=== PATIENT | female | born 1965 | race Caucasian/White ===

== ENCOUNTER → 2017-04-12 13:02 | Outpatient (CLI) | payer OTHER, SELFPAY ==
--- NOTE | 2017-04-12 13:05 | RAD_ITS ---
STUDY: X-RAY - LEFT ANKLE REASON FOR EXAM: Heel pain for several months, no specific injury. TECHNIQUE: 3 view(s) of the ankle. COMPARISON: Radiographs of the left foot 08/03/2015. FINDINGS: Normal visualized distal tibia and fibula. Normal medial and lateral malleoli. Normal tibiotalar articulation and ankle mortise. Normal visualized talus. There is a small plantar calcaneal enthesophyte. The visualized subtalar, talonavicular, calcaneocuboid and tarsal articulations are normal. The soft tissue structures are unremarkable. RAD/Ankle min 3 Views IMPRESSION: Small plantar calcaneal enthesophyte. Otherwise, unremarkable x-ray examination of the left ankle. Electronically Signed: Colin Aviles MD at 16:18 EST Tel , Service support ,
== END ==
PROVIDERS: Family Provider Family Medicine; PCP Family Medicine; Visit Provider Nurse Practitioner Family
DX: M25.572 Pain in left ankle and joints of left foot (principal)
CPT/HCPCS: 73610

== ENCOUNTER → 2017-05-17 10:48 | Outpatient (CLI) | payer OTHER, SELFPAY ==
--- NOTE | 2017-05-17 10:56 | MRI_ITS ---
STUDY: MRI LEFT ANKLE WITHOUT CONTRAST REASON FOR EXAM: Female, 52 years old. medial arch pain into medial ankle TECHNIQUE: Standardized fat and water weighted pulse sequences were obtained in all 3 orthogonal planes. COMPARISON: April 12, 2017 x-ray FINDINGS: There is mild diffuse subcutaneous edema. There is mild tenosynovitis of the posterior tibialis tendon sheath with an intrinsic normal tendon. Normal flexor digitorum longus tendon. Normal flexor hallucis longus tendon. Normal peroneus longus and brevis tendons. Normal tibialis anterior tendon. Normal extensor hallucis longus tendon. Normal extensor digitorum longus tendons. Normal Achilles tendon and teno-osseous insertion. Normal plantar fascia. There is a plantar calcaneal spur, but without cancellous marrow edema. Normal intrinsic muscles of the rearfoot. Normal distal tibiofibular syndesmotic ligamentous complex. There is scarring with thickening of the anterior talofibular ligament consistent with a remote sprain. Normal subtalar ligaments and sinus tarsi. Normal deltoid ligamentous complexes. Normal plantar calcaneonavicular (spring) ligament. Normal tibiotalar articulation. Normal talar dome. Normal subtalar articulations. Normal talonavicular articulation. Normal calcaneocuboid articulation. Normal navicular-cuneiform articulations. MRI/Lower Ext Joint Only (Routine) IMPRESSION: There is mild posterior tibial tenosynovitis. There is a plantar calcaneal spur. There is old injury of the ATFL. Electronically Signed: Kenisha Coombs MD at 13:04 EDT , Service support ,
== END ==
PROVIDERS: Family Provider Family Medicine; PCP Family Medicine; Visit Provider Podiatrist
DX: M76.822 Posterior tibial tendinitis, left leg (principal); S86.112A Strain of other muscle(s) and tendon(s) of posterior muscle group at lower leg level, left leg, initial encounter; M25.572 Pain in left ankle and joints of left foot
CPT/HCPCS: 73721

== ENCOUNTER → 2017-06-21 09:26 | Outpatient (CLI) | payer OTHER, SELFPAY ==
[2017-06-21 12:16] LABS: Vitamin B12 548 pg/mL (211-911); Vitamin D,25 Hydroxy 30.3 ng/mL (29.95-100.01)
[2017-06-21 13:11] LABS: ALB/GLOB Ratio 1.1 RATIO (0.9-2.4); AST(SGOT) 37 U/L (15-37); Alanine Aminotransfer ALT/SGPT 76 U/L (13-56); Albumin, Serum 3.8 g/dL (3.2-5.0); Alkaline Phosphatase 91 U/L (45-117); Anion Gap 8 (5-15); BUN 18 mg/dL (7-18); BUN/Creat Ratio 21.9 RATIO (10-20); Calcium,Total 8.5 mg/dL (8.5-10.1); Chloride 105 mmol/L (98-107); Cholesterol 176 mg/dL (200); Creatinine, Serum 0.82 mg/dL (0.55-1.02); EST Glomerular Filtration Rate 77 mL/min (>60); Est Glom Filt Rate - Afr Amer 93 mL/min (>60); Globulin 3.6 g/dL (2.2-4.2); Glucose 88 mg/dL (74-106); High Density Lipoprotein 41 mg/dL; Potassium 3.9 mmol/L (3.5-5.1); Protein, Total 7.4 g/dL (6.4-8.2); Sodium Level 140 mmol/L (136-145); Triglycerides 289 mg/dL; Very Low Density Lipoprotein 58 mg/dL (5-40)
== END ==
PROVIDERS: Family Provider Family Medicine; PCP Family Medicine; Visit Provider Family Medicine
DX: G62.9 Polyneuropathy, unspecified (principal); I10 Essential (primary) hypertension; E72.12 Methylenetetrahydrofolate reductase deficiency
CPT/HCPCS: 36415; 80053; 80061; 82306; 82607; 82746

== ENCOUNTER → 2017-11-10 15:43 | Outpatient (CLI) | payer OTHER, SELFPAY ==
--- NOTE | 2017-11-10 15:50 | BI_ITS ---
MAMMOGRAPHY - BILATERAL SCREENING REASON FOR EXAM: Female, 52 years old. Routine annual screening examination. PERTINENT HISTORY: Grandmother with breast cancer. Aunts with breast cancer. TECHNIQUE: Digital bilateral breast judith (3D mammographic acquisition) in the CC and MLO projections. 2-D mediolateral oblique (MLO) and craniocaudad (CC) views of both breasts were obtained. CAD: Full Field Digital Mammography with Computer Added Detection was performed. COMPARISON: Comparison is made with prior study dated October 20, 2016 and October 09, 2015. FINDINGS: Breast Composition: There are scattered areas of fibroglandular density. There are no dominant masses or suspicious calcifications. There is a 5.9 mm x 5.9 mm well-defined nodule in the upper lateral portion of the left breast. This was not well seen on prior examination. Correlation with ultrasound is recommended. No other significant abnormalities are identified. BI/SCREENING MAMM (CAD), BILAT IMPRESSION: There is a 5.9 mm x 5.9 mm well-defined nodule in the upper lateral portion of the left breast as described. Correlation with ultrasound is recommended. ASSESSMENT CATEGORY: BIRADS Category 0: Incomplete. Need additional imaging evaluation. A letter regarding these results will be sent to the patient by the facility within 30 days. Approximately 10% of breast cancers are not detected by mammography. A normal mammogram should not delay biopsy of a clinically suspicious abnormality. [id number] Electronically Signed: Feliciano Linder MD at 8:20 EDT Tel [phone], Service support ,
== END ==
PROVIDERS: Family Provider Family Medicine; PCP Family Medicine; Visit Provider Obstetrics & Gynecology
DX: Z12.31 Encounter for screening mammogram for malignant neoplasm of breast (principal)
CPT/HCPCS: 77063; 77067

== ENCOUNTER → 2017-11-15 09:31 | Outpatient (CLI) | payer OTHER, SELFPAY ==
--- NOTE | 2017-11-15 09:33 | US_ITS ---
STUDY: ULTRASOUND BREAST - LEFT REASON FOR EXAM: Female, 52 years old. Abnormal screening mammogram. TECHNIQUE: Axial and longitudinal images of the LEFT breast were performed with a high resolution ultrasound transducer. COMPARISON: Comparison is made with prior mammogram dated November 10, 2017. FINDINGS: LEFT Breast: There is a 5 mm x 5 mm x 3 mm cyst at the 3:00 position the breast at 2 cm from the nipple. This corresponds to the mammographic findings. There is also evidence of retroareolar ductal dilatation. US/Breast Limited Unilateral IMPRESSION: 5 mm x 5 mm x 3 mm cyst at the 3:00 position of the breast at 2 cm from the nipple. Mild retroareolar ductal dilatation. ASSESSMENT CATEGORY: BIRADS Category 2: Benign. A letter regarding these results will be sent to the patient by the facility within 30 days. Electronically Signed: Feliciano Linder MD at 11:09 EDT Tel [phone], Service support ,
== END ==
PROVIDERS: Family Provider Family Medicine; PCP Family Medicine; Visit Provider Obstetrics & Gynecology
DX: R92.8 Other abnormal and inconclusive findings on diagnostic imaging of breast (principal)
CPT/HCPCS: 76642

== ENCOUNTER → 2018-02-28 08:58 | Outpatient (CLI) | payer OTHER, SELFPAY ==
--- NOTE | 2018-02-28 09:03 | BI_ITS ---
MAMMOGRAPHY - UNILATERAL DIAGNOSTIC: RIGHT BREAST REASON FOR EXAM: Female, 52 years old. Two-week history of right nipple discharge. PERTINENT HISTORY: Grandmother with breast cancer. TECHNIQUE: Digital unilateral breast judith (3D mammographic acquisition) in the CC and MLO projections. 2-D mediolateral oblique (MLO) and craniocaudad (CC) views of both breasts were obtained. CAD: Full Field Digital Mammography with Computer Added Detection was performed. COMPARISON: Comparison is made with prior study dated November 10, 2017 and October 20, 2016. FINDINGS: Breast Composition: There are scattered areas of fibroglandular density. There are no dominant masses or suspicious calcifications. No other significant abnormalities are identified. There has been no significant change since the prior study. BI/DIAG MAMM W/CAD, UNILAT IMPRESSION: Stable unilateral diagnostic mammogram. With the patient's history of right nipple discharge, correlation with ultrasound is recommended. ASSESSMENT CATEGORY: BIRADS Category 0: Incomplete. Need additional imaging evaluation. A letter regarding these results will be sent to the patient by the facility within 30 days. Approximately 10% of breast cancers are not detected by mammography. A normal mammogram should not delay biopsy of a clinically suspicious abnormality. Electronically Signed: Feliciano Linder MD at 15:50 EST Tel [phone], Service support ,
--- NOTE | 2018-02-28 09:06 | US_ITS ---
STUDY: ULTRASOUND BREAST - RIGHT REASON FOR EXAM: Female, 52 years old. Nipple discharge in the right breast. TECHNIQUE: Axial and longitudinal images of the RIGHT breast were performed with a high resolution ultrasound transducer. COMPARISON: Comparison is made with prior mammogram done earlier today. FINDINGS: RIGHT Breast: The retroareolar region of the breast was examined by ultrasound. There is evidence of dilated subareolar ducts. There is also evidence of a 6 mm x 7 mm x 4 mm cyst at the 6:00 position of the breast just inferior to the areola. US/Breast Limited Unilateral IMPRESSION: Dilated subareolar ducts. 6 mm x 7 mm x 4 mm cyst in the inferior retroareolar region. ASSESSMENT CATEGORY: BIRADS Category 2: Benign. A letter regarding these results will be sent to the patient by the facility within 30 days. Electronically Signed: Feliciano Linder MD at 13:11 EST Tel [phone], Service support ,
== END ==
PROVIDERS: Family Provider Family Medicine; PCP Family Medicine; Referring Provider Obstetrics & Gynecology; Visit Provider Obstetrics & Gynecology
DX: N64.52 Nipple discharge (principal)
CPT/HCPCS: 76642; 77061; 77065; G0279

== ENCOUNTER → 2018-04-26 08:46 | Outpatient (CLI) | payer OTHER, SELFPAY ==
[2018-03-03 09:35] VITALS: BMI 38.4
[2018-04-26 10:30] LABS: Microalbumin,Random Urine 18.6 mg/L (NO RANGE EST.)
[2018-04-26 10:36] LABS: ALB/GLOB Ratio 1.2 RATIO (0.9-2.4); AST(SGOT) 34 U/L (15-37); Alanine Aminotransfer ALT/SGPT 63 U/L (13-56); Albumin, Serum 3.8 g/dL (3.2-5.0); Alkaline Phosphatase 88 U/L (45-117); Anion Gap 8 (5-15); BUN 16 mg/dL (7-18); BUN/Creat Ratio 17.5 RATIO (10-20); Calcium,Total 8.5 mg/dL (8.5-10.1); Chloride 104 mmol/L (98-107); Cholesterol 171 mg/dL (200); Creatinine, Serum 0.92 mg/dL (0.55-1.02); EST Glomerular Filtration Rate 68 mL/min (>60); Est Glom Filt Rate - Afr Amer 82 mL/min (>60); Globulin 3.3 g/dL (2.2-4.2); Glucose 81 mg/dL (74-106); High Density Lipoprotein 41 mg/dL; Potassium 4.1 mmol/L (3.5-5.1); Protein, Total 7.1 g/dL (6.4-8.2); Sodium Level 140 mmol/L (136-145); Triglycerides 227 mg/dL; Very Low Density Lipoprotein 45 mg/dL (5-40)
[2018-04-26 11:23] LABS: Vitamin D,25 Hydroxy 32.7 ng/mL (29.95-100.01)
== END ==
PROVIDERS: Family Provider Family Medicine; PCP Family Medicine; Referring Provider Family Medicine; Visit Provider Family Medicine
DX: Z13.21 Encounter for screening for nutritional disorder (principal); Z13.29 Encounter for screening for other suspected endocrine disorder; I10 Essential (primary) hypertension
CPT/HCPCS: 36415; 80053; 80061; 82043; 82306; 84443

== ENCOUNTER → 2018-05-08 08:08 | Outpatient (CLI) | payer OTHER, SELFPAY ==
[2018-03-03 09:35] VITALS: BMI 38.4
--- NOTE | 2018-05-08 08:10 | US_ITS ---
STUDY: ABDOMINAL ULTRASOUND - RIGHT UPPER QUADRANT REASON FOR VISIT: Female, 53 years old. Fatty liver. TECHNIQUE: Ultrasound evaluation of the right upper quadrant was performed with real-time and static jama-scale imaging. TECHNICAL QUALITY: Adequate. COMPARISON: None. FINDINGS: Liver: The liver measures 18.5 cm. There is increased echogenicity and coarsened echotexture consistent with fatty infiltration. The bile ducts are within normal limits. There is hepatic color flow. The direction of portal flow is hepatopetal. There is no demonstrated mass lesion. Gallbladder: Normal distended gallbladder. The gallbladder wall measures 3 mm. There is a negative sonographic Stock's sign. There is no pericholecystic fluid. Solitary gallstone in neck of the gallbladder measuring 7 mm. Small polyp versus adherent gallstone measuring 4 mm. Common Bile Duct (C.B.D.): The common bile duct measures 2 mm. Pancreas: Normal size of the head, body and tail of the pancreas. There is normal echogenicity of the pancreas. There is no demonstrated pancreatic mass or cyst. Right Kidney: Normal size of the right kidney. The right kidney measures 13.4 cm. Normal renal cortex. The right cortex measures 1.9 cm. Simple cyst inferior pole measuring 2.4 x 2.3 x 2.0 cm. There is no right hydronephrosis. US/Abdomen Limited IMPRESSION: Fatty liver. Minimal cholelithiasis. Small polyp versus adherent gallstone. Simple right renal cyst. Electronically Signed: Ervin Oliva MD at 7:50 EDT , Service support ,
== END ==
PROVIDERS: Family Provider Family Medicine; PCP Family Medicine; Visit Provider Family Medicine
DX: K76.0 Fatty (change of) liver, not elsewhere classified (principal)
CPT/HCPCS: 76705

== ENCOUNTER → 2018-05-10 14:46 | Outpatient (CLI) | payer OTHER, SELFPAY ==
[2018-03-03 09:35] VITALS: BMI 38.4
--- NOTE | 2018-05-10 14:49 | ECHOD_ITS ---
Reason For Study: DYSPNEA Procedure This was a 2D Doppler, Color Flow transthoracic echocardiogram. Exam performed in department. Left Ventricle Normal size and thickness. The estimated ejection fraction is 65 %. Stage 1 diastolic dysfunction. No regional wall motion abnormalities noted. Right Ventricle Normal size and thickness. Normal systolic function. Atria Normal left atrium. Normal right atrium. Normal atrial septum. Mitral Valve The mitral valve is structurally normal. No prolapse or stenosis seen. Tricuspid Valve Normal tricuspid valve. Unable to estimate RV systolic pressure due to inadequate jet, pulmonary artery pressure probably normal. Aortic Valve Normal aortic valve. Trisinus/trileaflet aortic valve. Pulmonic Valve Normal pulmonic valve. Trivial pulmonic valve insufficiency. Great Vessels Normal aortic root. Normal arch. Normal inferior vena cava. Pericardium/Pleural No pericardial effusion. MMode/2D Measurements & Calculations LVIDd: 4.1 cm IVSd: 1.1 cm Ao root diam: 3.2 cm LVIDs: 3.2 cm LVPWd: 0.87 cm RVDd: 3.3 cm FS: 23.5 % LAV(MOD-bp): 32.8 ml LA A4 area: 14.6 cm2 LA dimension(2D): 3.8 cm LAV(MOD-bp) Indexed: 14.8 ml/m2 LAV(MOD-sp2): 31.8 ml LAV(MOD-sp4): 32.3 ml RA A4 area: 13.4 cm2 Time Measurements MV dec time: 0.23 sec Doppler Measurements & Calculations MV E max canelo: 62.4 cm/sec Lat Peak E' Canelo: 11.4 cm/sec Med Peak E' Canelo: 7.7 cm/sec MV A max canelo: 71.5 cm/sec E/E' lat: 5.5 E/E' med: 8.1 MV E/A: 0.87 Ao V2 max: 127.3 cm/sec LV V1 max: 121.9 cm/sec PA V2 max: 89.4 cm/sec Ao max P.5 mmHg LV V1 max P.9 mmHg PI end-d canelo: 110.0 cm/sec Interpretation Summary The estimated ejection fraction is 65 %. Stage 1 diastolic dysfunction. Unable to estimate RV systolic pressure due to inadequate jet, pulmonary artery pressure probably normal. Compared to echo report dated 12/05/2013. no appreciable changes noted. Ordering Physician: Lester Corey Referring Physician: Lester Corey Performed By: Cris Ayala RDCS, RVT
== END ==
PROVIDERS: Family Provider Family Medicine; PCP Family Medicine; Referring Provider Family Medicine; Visit Provider Family Medicine
DX: R06.00 Dyspnea, unspecified (principal)
CPT/HCPCS: 93306

== ENCOUNTER → 2018-11-14 16:14 | Outpatient (CLI) | payer OTHER, SELFPAY ==
[2018-03-03 09:35] VITALS: BMI 38.4
[2018-11-14 17:45] LABS: Erythrocyte Sedimentation Rate 4 mm/hr (0-30)
[2018-11-14 18:18] LABS: Rubella IgG 70.9 IU/mL; Vitamin B12 322 pg/mL (211-911)
[2018-11-17 10:13] LABS: Mumps Antibody,IgG 94.1 AU/mL (Immune >10.9); Rubeola IgG Ab < 13.5 AU/mL (Immune >16.4)
== END ==
PROVIDERS: Family Provider Family Medicine; PCP Family Medicine; Referring Provider Family Medicine; Visit Provider Family Medicine
DX: Z01.84 Encounter for antibody response examination (principal); G62.9 Polyneuropathy, unspecified; E55.9 Vitamin D deficiency, unspecified
CPT/HCPCS: 36415; 82306; 82607; 85652; 86735; 86762; 86765

== ENCOUNTER → 2019-03-20 08:29 | Outpatient (CLI) | payer OTHER, SELFPAY ==
[2018-03-03 09:35] VITALS: BMI 38.4
--- NOTE | 2019-03-20 08:34 | BI_ITS ---
MAMMOGRAPHY - BILATERAL SCREENING REASON FOR EXAM: Female, 53 years old. Routine annual screening examination. PERTINENT HISTORY: Grandmother with breast cancer. Aunts with breast cancer. TECHNIQUE: Digital bilateral breast shreya (3D mammographic acquisition) in the CC and MLO projections. 2-D mediolateral oblique (MLO) and craniocaudad (CC) views of both breasts were obtained. CAD: Full Field Digital Mammography with Computer Added Detection was performed. COMPARISON: Comparison is made with prior study dated February 28, 2018 and November 10, 2017. FINDINGS: Breast Composition: There are scattered areas of fibroglandular density. There are no dominant masses or suspicious calcifications. There is an 8.2 mm well-defined nodule in the retroareolar area of the right breast. This was demonstrated to be a cyst on prior sonogram of the right breast dated February 28, 2018. Stable 5.9 mm well-defined nodule in the upper lateral portion of the left breast. No other significant abnormalities are identified. There has been no significant change since the prior study. BI/SCREEN MAMM (CAD) W/SHREYA BILAT IMPRESSION: Stable bilateral screening mammogram. Yearly follow-up mammogram recommended. (A) ASSESSMENT CATEGORY: BIRADS Category 2: Benign. A letter regarding these results will be sent to the patient by the facility within 30 days. Approximately 10% of breast cancers are not detected by mammography. A normal mammogram should not delay biopsy of a clinically suspicious abnormality. [id number] Electronically Signed: Feliciano Linder, at 9:28 EST , Service support ,
== END ==
PROVIDERS: Family Provider Family Medicine; PCP Family Medicine; Referring Provider Family Medicine; Visit Provider Family Medicine
DX: Z12.31 Encounter for screening mammogram for malignant neoplasm of breast (principal)
CPT/HCPCS: 77063; 77067

== ENCOUNTER → 2019-08-28 14:34 | Outpatient (CLI) | payer OTHER, SELFPAY ==
[2018-03-03 09:35] VITALS: BMI 38.4
--- NOTE | 2019-08-28 14:46 | RAD_ITS ---
STUDY: X-RAY - LEFT KNEE REASON FOR EXAM: Female, 54 years old. EXTREME PAIN ENTIRE LEFT KNEE. UNABLE TO BEAR MUCH WEIGHT AT ALL. PATIENT STATES HER LEFT KNEE POPPED TODAY NOW IT IS VERY PAINFUL AND UNSTABLE. PATIENT DOES STATE OVER THE LAST FEW MONTHS HAS BEEN HAVING PAINS WELL. TECHNIQUE: 4 view(s) of the knee. COMPARISON: None. FINDINGS: No acute fracture or dislocation. Prominent soft tissue swelling and mild diffuse degenerative changes. Consider MRI for further evaluation of the soft tissues and to exclude internal arrangement. RAD/Knee 4 or More Views IMPRESSION: No acute fracture or dislocation. Prominent soft tissue swelling and mild diffuse degenerative changes. Consider MRI for further evaluation of the soft tissues and to exclude internal arrangement. Electronically Signed: Nikos Patel, at 22:10 EDT Tel , Service support ,
== END ==
PROVIDERS: PCP Family Medicine; Referring Provider Family Medicine; Visit Provider Family Medicine
DX: M25.562 Pain in left knee (principal)
CPT/HCPCS: 73564

== ENCOUNTER → 2019-09-30 11:30 | Outpatient (CLI) | payer OTHER, SELFPAY ==
[2018-03-03 09:35] VITALS: BMI 38.4
[2019-09-30 15:22] LABS: Vitamin D,25 Hydroxy 44.3 ng/mL
[2019-09-30 15:51] LABS: Anion Gap 5 (5-15); BUN 16 mg/dL (7-18); BUN/Creat Ratio 17.7 RATIO (10-20); Calcium,Total 8.4 mg/dL (8.5-10.1); Chloride 104 mmol/L (98-107); Cholesterol 186 mg/dL (200); EST Glomerular Filtration Rate 68 mL/min (>60); Est Glom Filt Rate - Afr Amer 83 mL/min (>60); Glucose 89 mg/dL (74-106); High Density Lipoprotein 37 mg/dL; Potassium 3.9 mmol/L (3.5-5.1); Sodium Level 139 mmol/L (136-145); Thyroid Stim Hormone (TSH) 1.31 uIU/mL (0.358-3.74); Triglycerides 261 mg/dL; Very Low Density Lipoprotein 52 mg/dL (5-40)
== END ==
PROVIDERS: PCP Family Medicine; Referring Provider Family Medicine; Visit Provider Family Medicine
DX: Z13.21 Encounter for screening for nutritional disorder (principal); I10 Essential (primary) hypertension; Z13.29 Encounter for screening for other suspected endocrine disorder
CPT/HCPCS: 36415; 80048; 80061; 82306; 84443

== ENCOUNTER → 2020-01-20 16:18 | Outpatient (CLI) | payer OTHER, SELFPAY ==
[2018-03-03 09:35] VITALS: BMI 38.4
== END ==
PROVIDERS: PCP Family Medicine; Visit Provider Family Medicine
DX: U07.1 COVID-19 (principal)
CPT/HCPCS: 87635; U0003

== ENCOUNTER → 2020-05-15 16:21 | Outpatient (CLI) | payer OTHER, SELFPAY | PROVIDERS: PCP Family Medicine; Visit Provider Surgery | DX: N61.1 Abscess of the breast and nipple (principal); L72.3 Sebaceous cyst; L08.9 Local infection of the skin and subcutaneous tissue, unspecified | CPT/HCPCS: 87070; 87075; 87077; 87205 ==

== ENCOUNTER → 2020-07-15 15:08 | Outpatient (CLI) | payer OTHER, SELFPAY ==
--- NOTE | 2020-07-15 15:11 | BI_ITS ---
MAMMOGRAPHY - BILATERAL SCREENING 3-D TOMOSYNTHESIS REASON FOR EXAM: Female, 55 years old. Routine screening PERTINENT HISTORY: Grandmother and aunts with breast cancer.. TECHNIQUE: 2-D mammograms and 3-D Tomosynthesis of the breast (s) were performed. CAD was performed. COMPARISON: 03/20/2019 FINDINGS: The breast composition is composed of scattered fibroglandular density. Scattered benign calcifications are seen. No dense spiculated masses or suspicious microcalcifications are identified. No architectural distortion is identified. There is no skin thickening or retraction. There has been no significant change since the prior study. BI/SCRN MAMM (CAD)W/SHREYA BILAT IMPRESSION: No mammographic signs of malignancy. Routine yearly mammograms recommended. ASSESSMENT CATEGORY: BIRADS Category 2: Benign. A letter regarding these results will be sent to the patient by the facility within 30 days. FOLLOW UP RECOMMENDATION: Yearly follow up mammogram recommended. (A) Approximately 10% of breast cancers are not detected by mammography. A normal mammogram should not delay biopsy of a clinically suspicious abnormality. Electronically Signed: Lonnie Wasserman MD at 7:42 EDT , Service support ,
== END ==
PROVIDERS: PCP Family Medicine; Referring Provider Obstetrics & Gynecology; Visit Provider Obstetrics & Gynecology
DX: Z12.31 Encounter for screening mammogram for malignant neoplasm of breast (principal); Z80.3 Family history of malignant neoplasm of breast
CPT/HCPCS: 77063; 77067

== ENCOUNTER → 2021-02-15 09:46 | Outpatient (CLI) | payer OTHER, SELFPAY ==
[2021-02-15 12:18] LABS: Anion Gap 7 (5-15); BUN 17 mg/dL (7-18); BUN/Creat Ratio 17.5 RATIO (10-20); Calcium,Total 9.1 mg/dL (8.5-10.1); Chloride 105 mmol/L (98-107); Cholesterol 163 mg/dL (200); Creatinine, Serum 0.97 mg/dL (0.55-1.02); EST Glomerular Filtration Rate 63 mL/min (>60); Est Glom Filt Rate - Afr Amer 76 mL/min (>60); Glucose 94 mg/dL (74-106); High Density Lipoprotein 41 mg/dL; Potassium 3.8 mmol/L (3.5-5.1); Sodium Level 141 mmol/L (136-145); Triglycerides 182 mg/dL; Very Low Density Lipoprotein 36 mg/dL (5-40)
[2021-02-15 12:21] LABS: Vitamin D,25 Hydroxy 68.1 ng/mL
== END ==
PROVIDERS: PCP Family Medicine; Visit Provider Family Medicine
DX: E55.9 Vitamin D deficiency, unspecified (principal); I10 Essential (primary) hypertension
CPT/HCPCS: 36415; 80048; 80061; 82306

== ENCOUNTER 2021-05-30 22:23 | Inpatient (IN) | payer OTHER, SELFPAY ==
[2021-05-30 22:23] VITALS: BP 139/81; PULSE 81; RESP 15; TEMP 36.4; O2SAT 97; BMI 39.1
--- NOTE | 2021-05-30 22:50 | CT_ITS ---
We are attempting to reach an attending provider to discuss findings. An addendum with communication details will be sent when the communication is complete. EXAM: CT ABDOMEN AND PELVIS WITH INTRAVENOUS CONTRAST CLINICAL INDICATION: abd pain / ? Biliary colic TECHNIQUE: Helically acquired images were obtained of the abdomen and pelvis with intravenous contrast. This CT exam was performed using one or more of the following dose reduction techniques: automated exposure control, adjustment of the mA and/or kV according to patient size, and/or use of iterative reconstruction technique. This report was created using [employer] technology. RADIATION DOSAGE (If Required by State): CTDIvol = 16.99 mGy, DLP = 1358.48 mGycm. CONTRAST: IV 100mL [id number] COMPARISON: Abdominal ultrasound 05/08/2018. FINDINGS: LOWER THORAX: Unremarkable. Lung bases are clear. No cardiomegaly. No significant pericardial effusion. ABDOMEN: LIVER: There is diffuse low-attenuation of the liver. GALLBLADDER AND BILE DUCTS: Cholelithiasis and mild pericholecystic edema. No intra- or extrahepatic biliary ductal dilation. PANCREAS: Unremarkable. No focal cystic or solid mass. SPLEEN: Unremarkable. Normal size without focal cystic or solid mass. ADRENALS: Unremarkable. No nodules. KIDNEYS AND URETERS: Atrophic left kidney with multiple small cysts. Small cyst right kidney. No follow-up imaging required. No hydronephrosis. STOMACH AND BOWEL: Scattered sigmoid diverticula without diverticulitis. No stomach or bowel distention. PELVIS: APPENDIX: Normal appendix. BLADDER: Unremarkable. REPRODUCTIVE: Hysterectomy. ABDOMEN and PELVIS: INTRAPERITONEAL SPACE: Unremarkable. No ascites or other fluid collection. No free air. BONES/JOINTS: Unremarkable. No suspicious lytic or blastic abnormality. SOFT TISSUES: Unremarkable. No discrete abdominal or pelvic wall hernia. VASCULATURE: Unremarkable. Abdominal aorta is non-dilated. LYMPH NODES: Unremarkable. No enlarged lymph nodes. CT/Abdomen/Pelvis W IV Cont ONLY IMPRESSION: 1. Cholelithiasis and mild pericholecystic edema. Findings suggestive of acute cholecystitis. 2. Fatty liver. 3. Scattered sigmoid diverticula without diverticulitis. 4. Hysterectomy. Electronically Signed: Maksim Rollins MD at 23:51 EDT ,
--- NOTE | 2021-05-30 22:58 | EX.ED.DYSGE1 ---
HPI History of Present Illness Chief Complaint: Abd Pain Narrative Narrative: Patient is a 56-year-old female who states she noticed a little bit of right upper quadrant abdominal pain yesterday evening. She states the pain seemed to resolve and she was able to sleep with that today she has had waxing and waning pain in the right upper quadrant that can wrap towards her back. She states she becomes nauseous but does not vomit when the pain increases. She does state that the pain seemed to worsen after eating a roast beef sandwich for lunch today. She states that she does not know why she keeps getting recurrent abdominal pain and secondary to this presents for evaluation [facility] Medical History (Updated 05/31/21 @ 00:[address] Ari Lee, DO) Asthma Bilateral breast cysts Depression Duct ectasia of breast Hemorrhoids HTN (hypertension) MTHFR (methylene THF reductase) deficiency and homocystinuria Nipple discharge Renal calculi Sleep apnea Small fiber neuropathy Home Medications Active B12 Folate 1 tab SL DAILY 01/27/16 [History Last Taken Unknown] B cmplx 4-vit Z5-S-bcaol-zinc 1 ea PO DAILY 01/27/16 [History Last Taken Unknown] L.acidoph, paracasei,B. lactis 1 ea PO DAILY 01/27/16 [History Last Taken Unknown] albuterol sulfate 2 puff INHALATION Q4H PRN PRN 01/27/16 [History Last Taken Unknown] ascorbic acid (vitamin C) 500 mg PO BIDCM 01/27/16 [History Last Taken Unknown] aspirin 81 mg PO DAILY@0800 01/27/16 [History Last Taken Unknown] calcium citrate 630 mg PO DAILY 01/27/16 [History Last Taken Unknown] cholecalciferol (vitamin D3) 2,000 unit PO DAILY 01/27/16 [History Last Taken Unknown] coenzyme [id number] E 1 ea PO DAILY 01/27/16 [History Last Taken Unknown] fexofenadine-pseudoephedrine 1 ea PO DAILY 01/27/16 [History Last Taken Unknown] krill oil 500 mg PO DAILY 01/27/16 [History Last Taken Unknown] losartan-hydrochlorothiazide 1 tab PO DAILY 01/27/16 [History Last Taken Unknown] montelukast 10 mg PO DAILY 01/27/16 [History Last Taken Unknown] estradiol 1 mg PO DAILY #100 tab 02/01/16 [Rx Last Taken Unknown] famotidine 20 mg PO DAILY PRN PRN 02/01/16 [History Last Taken 02/01/16 07:00] amitriptyline 25 mg tablet 25 mg PO QHS tablet 05/15/20 [History Last Taken Unknown] clobetasol 0.05 % topical cream 1 applic TOPICAL gm 05/15/20 [History Last Taken Unknown] escitalopram oxalate 10 mg tablet 10 mg PO DAILY tablet 05/15/20 [History Last Taken Unknown] mometasone-formoterol HFA 100 mcg-5 mcg/actuation aerosol inhaler 2 inh INHALATION gm 05/15/20 [History Last Taken Unknown] Allergy/AdvReac Type Severity Reaction Status Date / Time Sulfa (Sulfonamide Allergy Hives Verified 05/30/21 22:26 Antibiotics) JELANI Inhibitors AdvReac COUGH Verified 05/30/21 22:26 Family History Father Hypertension Mother Hypertension Aunt Breast cancer Aunt Breast cancer Surgical History History of fusion of cervical spine History of hysterectomy Social History (Updated 06/05/20 @ 14:[address] Valeri Smith MD) Smoking Status: Never smoker ROS ROS ED Constitutional Constitutional ED: Denies chills or fever(s) ENT ENT ED: Denies sore throat Cardiovascular Cardiovascular: Denies chest pain Respiratory/Chest Respiratory/Chest: Denies cough or dyspnea Gastrointestinal Gastrointestinal: Reports abdominal pain and nausea; Denies diarrhea or vomiting Genitourinary Genitourinary ED: Denies dysuria or hematuria Musculoskeletal Musculoskeletal: Reports back pain; Denies myalgias Integumentary Denies rash Neurologic Neurologic: Denies headache(s) Hematologic/Lymphatic Hematologic/Lymphatic: Denies easy bleeding or easy bruising EXAM Physical Exam Const Vital Signs: 05/30/21 22:23 Temperature 97.5 F L Temperature Source Temporal Pulse Rate 81 Respiratory Rate 15 Blood Pressure 139/81 H Blood Pressure Mean 100 Pulse Ox 97 Oxygen Delivery Method Room Air Positive well nourished, well developed and obese General Appearance ED: well developed Nutritional Appearance: obese HEENT Reports moist mucous membranes Eyes PERRL and EOMs intact bilaterally General Eye ED: Negative for scleral icterus Neck supple Resp normal respiratory effort and clear to auscultation bilaterally Cardio regular rate and regular rhythm Rate: other Other Details: Radial pulses are plus 2 out of 4 bilaterally are equal and symmetric GI non-distended and no masses GI Narrative: Pain with palpation in the right upper quadrant with mild guarding at this site as well as in the midepigastric region. Positive Stock sign as well. No pulsatile mass. No fluid wave or increased tympany. Auscultation: normoactive bowel sounds Palpation: soft Extremity normal to inspection Neuro oriented x3 and CN's II-XII intact bilaterally Sensorium / Orientation: alert Motor Exam: strength 5/5 throughout Psych mental status grossly normal Skin no rashes or lesions noted General Skin Exam: Negative for jaundice MDM MDM MDM Narrative Medical decision making narrative: Patient presented to the ER afebrile but had pain with guarding as well as a Stock's sign present in the right upper quadrant. She was not jaundiced or having scleral icterus but with concern this could be gallbladder dysfunction or infection a basic work-up was obtained. Blood work revealed no white count or left shift lipase and liver enzymes were normal as well. However CT scan did show gallstones with pericholecystic fluid concerning for acute cholecystitis. Secondary to this the case was discussed with the general surgeon who recommends admission with most likely cholecystectomy tomorrow. The plan of care was discussed with the patient she is agreeable to this and therefore we placed in the hospital at this time. Zosyn was started secondary to CT scan showing changes concerning for infection. Lab Data Attestation: I reviewed the patient's lab results. Labs: Laboratory Results - last 24 hr 05/30/21 05/30/21 22:55 22:55 WBC 6.3 RBC 4.56 Hgb 14.2 Hct 40.5 MCV 88.8 MCH 31.1 MCHC 35.1 RDW Std Deviation 40.1 RDW Coeff of Segundo 12.4 Plt Count 173 MPV 9.2 Immature Gran % (Auto) 0.800 Neut % (Auto) 60.4 Lymph % (Auto) 28.0 [place] % (Auto) 9.0 Eos % (Auto) 1.3 Baso % (Auto) 0.5 Absolute Neuts (auto) 3.8 Absolute Lymphs (auto) 1.75 Nucleated RBC % 0 Sodium 139 Potassium 3.9 Chloride 105 Carbon Dioxide 28.0 Anion Gap 6 BUN 16 Creatinine 1.02 Estim Creat Clear Calc 58.46 Est GFR (MDRD) Af Amer 72 Est GFR (MDRD) Non-Af 59 L BUN/Creatinine Ratio 15.7 Glucose 106 Calcium 9.4 Total Bilirubin 0.50 Direct Bilirubin 0.15 AST 23 ALT 44 Alkaline Phosphatase 88 Total Protein 7.1 Albumin 3.6 Globulin 3.5 Lipase 110 Radiography Diagnostic Testing: Clinical Impression(s) from Imaging Studies Abdomen/Pelvis CT 05/30/21 22:50 IMPRESSION: 1. Cholelithiasis and mild pericholecystic edema. Findings suggestive of acute cholecystitis. 2. Fatty liver. 3. Scattered sigmoid diverticula without diverticulitis. 4. Hysterectomy. Electronically Signed: Maksim Rollins MD at 23:51 EDT , ADDENDUM: 05/31/21 0010 IMPRESSION: 1. Cholelithiasis and mild pericholecystic edema. Findings suggestive of acute cholecystitis. 2. Fatty liver. 3. Scattered sigmoid diverticula without diverticulitis. 4. Hysterectomy. N.B. : The above Results were Read Back by Maksim Rollins MD to Dr. Alem MD, and understanding confirmed on 05/31/2021 00:03:40 (ET). Electronically Signed: Maksim Rollins MD at 23:51 EDT , Discharge Plan Triage Chief Complaint: Abd Pain ED Provider: Ari Lee Dx/Rx/DC Orders Clinical Impression: Acute cholecystitis Primary Care Provider: Ricco Corey Disposition Disposition: Acute Care Hospital [facility]
[2021-05-30 23:05] LABS: Absolute Lymphocyte Count 1.75 X10^3/uL (0.83-4.51); Absolute Neutrophil Count 3.8 X10^3/uL (2.0-7.7); Basophil# 0.03 X10^3/uL; Basophil% 0.5 % (0-1); Eosinophil# 0.08 X10^3/uL; Eosinophils% 1.3 % (0-5); Hematocrit 40.5 % (37-47); Hemoglobin 14.2 g/dL (12.0-15.0); Lymphocyte # 1.75 X10^3/ul (0.83-4.51); Mean Corp Hgb Conc 35.1 g/dL (32-36); Mean Corpuscular Hgb 31.1 pg (27.0-32.0); Mean Corpuscular Volume 88.8 fL (81-99); Mean Platelet Vol. 9.2 fl (6.2-12.0); Monocyte# 0.56 X10^3/uL; NRBC Flagged by Analyzer 0 % (0-5); Neutrophil # 3.78 X10^3/uL (2.7-7.7); Neutrophil % 60.4 % (47-70); Platelet Count 173 K/mm3 (150-450); RBC Distribution Width CV 12.4 % (11.6-14.6); RBC Distribution Width SD 40.1 fl (35.1-43.9); Red Blood Count 4.56 M/mm3 (4.2-5.4); White Blood Count 6.3 K/mm3 (4.4-11.0)
[2021-05-30] MEDS: Ondansetron 4 MG/2 ML Vial IV (23:19)
[2021-05-30] MEDS: Morphine 4 MG/ML Syringe IV (23:19)
[2021-05-30] MEDS: 0.9% Normal Saline 1,000 ML 999 ML IV (23:19)
[2021-05-30 23:20] LABS: AST(SGOT) 23 U/L (15-37); Alanine Aminotransfer ALT/SGPT 44 U/L (13-56); Albumin, Serum 3.6 g/dL (3.2-5.0); Alkaline Phosphatase 88 U/L (45-117); Anion Gap 6 (5-15); BUN 16 mg/dL (7-18); BUN/Creat Ratio 15.7 RATIO (10-20); Bilirubin, Direct 0.15 mg/dL (0.00-0.30); Calcium,Total 9.4 mg/dL (8.5-10.1); Chloride 105 mmol/L (98-107); Creatinine, Serum 1.02 mg/dL (0.55-1.02); EST Glomerular Filtration Rate 59 mL/min (>60); Est Glom Filt Rate - Afr Amer 72 mL/min (>60); Estimated Creatinine Clearance 58.46 ml/min; Globulin 3.5 g/dL (2.2-4.2); Glucose 106 mg/dL (74-106); Lipase 110 U/L (73-393); Potassium 3.9 mmol/L (3.5-5.1); Protein, Total 7.1 g/dL (6.4-8.2); Sodium Level 139 mmol/L (136-145)
[2021-05-31] VITALS (14 sets, daily range): BP systolic 101–145; BP diastolic 55–82; PULSE 69–88; RESP 15–18; TEMP 36.4–37.1; O2SAT 92–98; BMI 39.6
--- NOTE | 2021-05-31 00:09 | EKG12_ITS ---
Test Reason : PRE-OP Blood Pressure : / mmHG Vent. Rate : 073 BPM Atrial Rate : 073 BPM P-R Int : 176 ms QRS Dur : 088 ms QT Int : 404 ms P-R-T Axes : 040 031 043 degrees QTc Int : 445 ms Normal sinus rhythm Normal ECG When compared with ECG of 27-JAN-2016 16:30, No significant change was found Confirmed by LUÍS DUVAL, YAJAIRA ([id number]), video news editor PAULINO CISNEROS ([id number]) on 06/11/2021 1:29:49 PM Referred By: PEPITO Confirmed By:RODOLFO STALEY MD
--- NOTE | 2021-05-31 00:09 | RAD_ITS ---
EXAM: XR CHEST, 1 VIEW CLINICAL INDICATION: Preop clearance TECHNIQUE: Frontal view of the chest. This report was created using [employer] report generation technology. COMPARISON: None. FINDINGS: LUNGS AND PLEURAL SPACES: Unremarkable. No consolidation or edema. No pneumothorax. No effusion. HEART: Unremarkable. Cardiac silhouette not enlarged. MEDIASTINUM: Central airways and mediastinal contour are unremarkable. BONES/JOINTS: Anterior cervical fusion lower cervical spine. SOFT TISSUES: Unremarkable. RAD/Chest 1 View (Portable) IMPRESSION: No acute findings in the chest. Electronically Signed: Maksim Rollins MD at 1:26 EDT ,
[2021-05-31] MEDS: HYDROmorphone 1 MG/ML Syringe IV (00:19)
[2021-05-31] MEDS: Contrast Allergy Safety Check IV (00:19)
[2021-05-31 00:21] LABS: Mucous, Urine 0 SEEN /hpf (<or=2+)
[2021-05-31 00:25] LABS: Color, Urine Yellow (Yellow); Glucose, Dipstick Normal (Normal); Ketone-Dipstick Negative (Negative); Leukocyte Esterase-Dipstick 100 /ul (Negative); Nitrite-Dipstick Negative (Negative); Occult Blood-Urine 10 /ul (Negative); Protein-Dipstick 15 mg/dl (Negative); Specific Gravity, Urine 1.025 (1.002-1.030); Urine Bilirubin Dipstick Negative (Negative); Urine Clarity Clear (Clear); Urine Urobilinogen Normal (Normal)
[2021-05-31] MEDS: Piperacil/Tazobactam 3.375 GM Q8 PREMIX IV (00:26)
[2021-05-31 00:31] LABS: Bacteria RARE /hpf (None Seen); Calcium Oxalate Crystals Ur RARE /hpf (<or=2+); Red Blood Cells-Urine 0-5 SEEN /hpf (0-5); Squamous Epithelial Cells - UA 0-5 SEEN /hpf (5-10); White Blood Cells 0-5 SEEN /hpf (0-5)
[2021-05-31] MEDS: 0.9% Saline Lock 10 ML Syringe IV ×2 (01:43→09:40)
[2021-05-31] MEDS: 0.9% Normal Saline 1,000 ML 125 ML IV ×2 (01:43→09:41)
[2021-05-31 06:07] LABS: Absolute Lymphocyte Count 1.97 X10^3/uL (0.83-4.51); Absolute Neutrophil Count 3.6 X10^3/uL (2.0-7.7); Basophil# 0.03 X10^3/uL; Basophil% 0.5 % (0-1); Eosinophil# 0.13 X10^3/uL; Hematocrit 39.4 % (37-47); Hemoglobin 13.3 g/dL (12.0-15.0); Lymphocyte # 1.97 X10^3/ul (0.83-4.51); Lymphocyte % 30.4 % (19-41); Mean Corp Hgb Conc 33.8 g/dL (32-36); Mean Corpuscular Hgb 30.8 pg (27.0-32.0); Mean Corpuscular Volume 91.2 fL (81-99); Mean Platelet Vol. 9.5 fl (6.2-12.0); Monocyte# 0.69 X10^3/uL; Monocyte% 10.6 % (0-10); NRBC Flagged by Analyzer 0 % (0-5); Neutrophil % 55.4 % (47-70); Platelet Count 159 K/mm3 (150-450); RBC Distribution Width CV 12.6 % (11.6-14.6); RBC Distribution Width SD 41.8 fl (35.1-43.9); Red Blood Count 4.32 M/mm3 (4.2-5.4); White Blood Count 6.5 K/mm3 (4.4-11.0)
[2021-05-31 06:38] LABS: ALB/GLOB Ratio 1.1 RATIO (0.9-2.4); AST(SGOT) 89 U/L (15-37); Alanine Aminotransfer ALT/SGPT 96 U/L (13-56); Albumin, Serum 3.2 g/dL (3.2-5.0); Alkaline Phosphatase 85 U/L (45-117); Anion Gap 5 (5-15); BUN 14 mg/dL (7-18); BUN/Creat Ratio 14.4 RATIO (10-20); Calcium,Total 8.2 mg/dL (8.5-10.1); Chloride 106 mmol/L (98-107); Creatinine, Serum 0.97 mg/dL (0.55-1.02); EST Glomerular Filtration Rate 62 mL/min (>60); Est Glom Filt Rate - Afr Amer 76 mL/min (>60); Estimated Creatinine Clearance 61.48 ml/min; Glucose 99 mg/dL (74-106); Potassium 3.7 mmol/L (3.5-5.1); Protein, Total 6.2 g/dL (6.4-8.2); Sodium Level 140 mmol/L (136-145)
--- NOTE | 2021-05-31 07:36 | HP.PCM.SX_ITS ---
HPI - General General Date of Admission: 05/31/21 HPI Narrative PHU EDWARDS, is a 56 F who presents with right upper quadrant pain. Patient reports is been going on since yesterday. Patient is having nausea but no vomiting. She denies fevers or chills. [facility] Medical History (Updated 05/31/21 @ 01:06 by Parul Fagan) Asthma Bilateral breast cysts CPAP (continuous positive airway pressure) dependence Depression Duct ectasia of breast Hemorrhoids High cholesterol History of stress test HTN (hypertension) Injury of head and neck MTHFR (methylene THF reductase) deficiency and homocystinuria Nipple discharge Post-menopausal Renal calculi Sleep apnea Small fiber neuropathy Home Medications B cmplx 4-vit [id number]-zinc 1 ea PO DAILY 01/27/16 [History Last Taken Unknown] albuterol sulfate 2 puff INHALATION Q4H PRN PRN 01/27/16 [History Last Taken Unknown] ascorbic acid (vitamin C) 500 mg PO BIDCM 01/27/16 [History Last Taken Unknown] aspirin 81 mg PO DAILY@0800 01/27/16 [History Last Taken Unknown] calcium citrate 630 mg PO DAILY 01/27/16 [History Last Taken Unknown] cholecalciferol (vitamin D3) 1,000 unit PO DAILY 01/27/16 [History Last Taken Unknown] coenzyme [id number]-[id number] E 1 ea PO DAILY 01/27/16 [History Last Taken Unknown] fexofenadine-pseudoephedrine 1 ea PO DAILY 01/27/16 [History Last Taken Unknown] krill oil 500 mg PO DAILY 01/27/16 [History Last Taken Unknown] losartan-hydrochlorothiazide 1 tab PO DAILY 01/27/16 [History Last Taken Unknown] montelukast 10 mg PO QHS 01/27/16 [History Last Taken Unknown] famotidine 20 mg PO DAILY PRN PRN 02/01/16 [History Last Taken 02/01/16 07:00] amitriptyline 25 mg tablet 25 mg PO QHS tablet 05/15/20 [History Last Taken Unknown] clobetasol 0.05 % topical cream 1 applic TOPICAL PRN gm 05/15/20 [History Last Taken Unknown] escitalopram oxalate 10 mg tablet 10 mg PO DAILY tablet 05/15/20 [History Last Taken Unknown] mometasone-formoterol HFA 100 mcg-5 mcg/actuation aerosol inhaler 2 inh INHALATION QHS gm 05/15/20 [History Last Taken Unknown] Allergy/AdvReac Type Severity Reaction Status Date / Time Sulfa (Sulfonamide Allergy Hives Verified 05/30/21 22:26 Antibiotics) JELANI Inhibitors AdvReac COUGH Verified 05/30/21 22:26 Family History Father Hypertension Mother Hypertension Aunt Breast cancer Aunt Breast cancer Surgical History (Updated 05/31/21 @ 01:06 by Parul Fagan) History of fusion of cervical spine History of hysterectomy S/P hysterectomy Social History (Updated 06/05/20 @ 14:[address] Valeri Smith MD) Smoking Status: Never smoker ROS Constitutional Constitutional: Denies anorexia or fatigue Eyes Eyes: Denies blurry vision ENT HEENT: Denies abnormal hearing Respiratory/Chest Respiratory/Chest: Denies cough Gastrointestinal Gastrointestinal: Reports abdominal pain and nausea; Denies constipation, hematemesis, hematochezia or vomiting Genitourinary Genitourinary: Denies change in urinary stream Musculoskeletal Musculoskeletal: Denies abnormal gait Integumentary Integumentary: Denies jaundice Neurologic Neurologic: Denies dizziness Psychiatric Psychiatric: Denies anxiety Endocrine Endocrinology: Denies heat intolerance Hematologic/Lymphatic Hematologic/Lymphatic: Denies easy bleeding Vital Signs Vital Signs Vital Signs: 05/30/21 22:23 05/31/21 00:23 05/31/21 00:32 Temperature 97.5 F L 98.7 F 98.7 F Temperature Source Temporal Oral Oral Pulse Rate 81 77 77 Respiratory Rate 15 15 15 Respiratory Effort Respiratory Depth Respiratory Pattern Blood Pressure 139/81 H 132/78 H 132/78 H Blood Pressure Mean 100 96 96 Pulse Ox 97 94 94 Oxygen Delivery Method Room Air Room Air Room Air 05/31/21 01:52 05/31/21 02:04 Temperature 98.3 F Temperature Source Oral Pulse Rate 83 Respiratory Rate 18 Respiratory Effort Normal Respiratory Depth Normal Respiratory Pattern Normal Blood Pressure 101/55 L Blood Pressure Mean 70 Pulse Ox 94 Oxygen Delivery Method Room Air Room Air Weight Weight: 252 lb 13.923 oz Body Mass Index (BMI) 39.6 Physical Exam Const oriented x3 and no apparent distress Resp normal respiratory effort Cardio regular rate and regular rhythm GI soft to palpation Palpation: tender RUQ Results Lab / Micro Data Result Diagrams: 05/31/21 05:39 05/31/21 05:39 Labs: Laboratory Results - last 24 hr 05/30/21 22:55: WBC 6.3, RBC 4.56, Hgb 14.2, Hct 40.5, MCV 88.8, MCH 31.1, MCHC 35.1, RDW Std Deviation 40.1, RDW Coeff of Segundo 12.4, Plt Count 173, MPV 9.2, Immature Gran % (Auto) 0.800, Neut % (Auto) 60.4, Lymph % (Auto) 28.0, [place] % (Auto) 9.0, Eos % (Auto) 1.3, Baso % (Auto) 0.5, Absolute Neuts (auto) 3.8, Absolute Lymphs (auto) 1.75, Nucleated RBC % 0 05/30/21 22:55: Sodium 139, Potassium 3.9, Chloride 105, Carbon Dioxide 28.0, Anion Gap 6, BUN 16, Creatinine 1.02, Estim Creat Clear Calc 58.46, Est GFR (MDRD) Af Amer 72, Est GFR (MDRD) Non-Af 59 L, BUN/Creatinine Ratio 15.7, Glucose 106, Calcium 9.4, Total Bilirubin 0.50, Direct Bilirubin 0.15, AST 23, ALT 44, Alkaline Phosphatase 88, Total Protein 7.1, Albumin 3.6, Globulin 3.5, Lipase 110 05/31/21 00:12: Urine Color Yellow, Urine Clarity Clear, Urine pH 6.0, Ur Specific [place] 1.025, Urine Protein 15 H, Urine Glucose (UA) Normal, Urine Ketones Negative, Urine Occult Blood 10 H, Urine Nitrite Negative, Urine Bilirubin Negative, Urine Urobilinogen Normal, Ur Leukocyte Esterase 100 H, Urine RBC 0-5 SEEN, Urine WBC 0-5 SEEN, Ur Squamous Epith Cells 0-5 SEEN, Calcium Oxalate Crystal RARE, Urine Bacteria RARE, Urine Mucus 0 SEEN 05/31/21 05:39: WBC 6.5, RBC 4.32, Hgb 13.3, Hct 39.4, MCV 91.2, MCH 30.8, MCHC 33.8, RDW Std Deviation 41.8, RDW Coeff of Segundo 12.6, Plt Count 159, MPV 9.5, Immature Gran % (Auto) 1.100 H, Neut % (Auto) 55.4, Lymph % (Auto) 30.4, [place] % (Auto) 10.6 H, Eos % (Auto) 2.0, Baso % (Auto) 0.5, Absolute Neuts (auto) 3.6, Absolute Lymphs (auto) 1.97, Nucleated RBC % 0 05/31/21 05:39: Sodium 140, Potassium 3.7, Chloride 106, Carbon Dioxide 29.0, Anion Gap 5, BUN 14, Creatinine 0.97, Estim Creat Clear Calc 61.48, Est GFR (MDRD) Af Amer 76, Est GFR (MDRD) Non-Af 62, BUN/Creatinine Ratio 14.4, Glucose 99, Calcium 8.2 L, Total Bilirubin 0.40, AST 89 H, ALT 96 H, Alkaline Phosphatase 85, Total Protein 6.2 L, Albumin 3.2, Globulin 3.0, Albumin/Globulin Ratio 1.1 Micro: Microbiology 05/31/21 00:30 Nasal Secretion SARS-CoV-2 Antigen (Rapid) - Final Radiology Impression Abdomen/Pelvis CT 05/30/21 22:50 IMPRESSION: 1. Cholelithiasis and mild pericholecystic edema. Findings suggestive of acute cholecystitis. 2. Fatty liver. 3. Scattered sigmoid diverticula without diverticulitis. 4. Hysterectomy. Electronically Signed: Maksim Rollins MD at 23:51 EDT Reading Location ID and State: [id number] Tel , Service support , ADDENDUM: 05/31/21 0010 IMPRESSION: 1. Cholelithiasis and mild pericholecystic edema. Findings suggestive of acute cholecystitis. 2. Fatty liver. 3. Scattered sigmoid diverticula without diverticulitis. 4. Hysterectomy. N.B. : The above Results were Read Back by Maksim Rollins MD to Dr. Alem MD, and understanding confirmed on 05/31/2021 00:03:40 (ET). Electronically Signed: Maksim Rollins MD at 23:51 EDT , Chest X-Ray 05/31/21 00:09 IMPRESSION: No acute findings in the chest. Electronically Signed: Maksim Rollins MD at 1:26 EDT , Assessment & Plan Assessment/Plan (1) Acute cholecystitis: PLAN: Patient has CT scan which shows thickening and pericholecystic fluid. Patient has left shift and likely acute cholecystitis. I discussed laparoscopic cholecystectomy with her. I discussed the procedure in detail with the patient. I discussed the risks, benefits, and alternatives of the procedure. I discussed the risks including but not limited to bleeding, infection, injury to surrounding organs such as the liver, bile duct, bowels. I did discuss the possibility of having to convert to an open procedure as well as the possibility that if any injuries occurred this may necessitate further surgery at a tertiary care center. Michael Wilder MD Pager: [facility] [address] [place] [address], [address] [place] [address] Office:
[2021-05-31] MEDS: Morphine 2 MG/ML Syringe IV ×2 (09:41→17:35)
--- NOTE | 2021-05-31 11:28 | CASEMGMT ---
HARLAN METCALF Assessment: Face to Face with pt for initial transition planning/care coordination assessment. RN TEA introduced self and role at [facility], pt voices understanding and consents to assessment. Pt is A/O x4 and answers all questions appropriately at this time. Pt sitting up in bed in no distress, at bedside. Care providers, pharmacy, and demographics verified/updated. Admitting Dx: acute cholecystitis PCP: Leora Specialists:Luz, ELECTRICAL ELECTRONICS ENGINEER; larissa Sterling mgmt [facility]erred [facility]acy[facility] Insurance: MMO Prescription Benefit: yes LW/HPOA: Pt denies having a LW/DPOA and denies need for info regarding AD. LNOK: Winston Srinivasan, Living Arrangements: Pt lives with and dtr in a single story house with 2 steps to enter with 2 grab bars. Pt reports she is I in ADL's and denies concerns at home. Transportation: Pt drives self and denies concerns with transportation. DME/HHC/SNF: Pt has a CPAP at home, no hx of HHC and SNF stays. Pt states no concerns with going home at time of dc. Pt states no further concerns/needs. CM to follow. Advised pt to ask CM if any further question/concerns/needs arise, voices understanding. Pt Goal: Home Plan: Home
--- NOTE | 2021-05-31 12:30 | RAD_ITS ---
STUDY: INTRAOPERATIVE CHOLANGIOGRAM. REASON FOR EXAM: Female, 56 years old. ABD PAIN FLUOROSCOPY TIME (if supplied): ( 26 seconds ) minutes/seconds. A single loop of 73 images were submitted. TECHNIQUE: An intraoperative Cholangiogram was performed by the surgeon. Imaging was submitted. COMPARISON: None. FINDINGS: The visualized intra and extrahepatic biliary ducts are unremarkable. There is free flow of contrast into the duodenum. RAD/Cholangiogram/ O R,Initial IMPRESSION: Unremarkable intraoperative cholangiogram. Electronically Signed: Feliciano Linder MD at 13:46 EDT ,
[2021-05-31] MEDS: Lactated Ringers 1,000 ML 15 ML IV (13:00)
--- NOTE | 2021-05-31 13:20 | OP.PCM_ITS ---
Problems Associated Problem List Diagnoses (1) Acute cholecystitis: Report of Operation Date of Procedure: 05/31/21 Pre-Operative Diagnosis: Acute cholecystitis Post-Operative Diagnosis: Acute cholecystitis Surgery/Procedure Performed:: Laparoscopic cholecystectomy with cholangiogram Specimen's removed: Gallbladder Description of Procedure: After obtaining informed consent patient was brought back to the operating room. General anesthesia was induced. The abdomen was prepped and draped in usual sterile fashion. A small midline incision was made superior to the umbilicus and deepened to the level of fascia. The fascia was elevated and incised. Next the peritoneum was elevated and incised in the same fashion. Finger sweep was performed and the Bliss trocar was placed into the abdomen. The balloon was inflated. The abdomen was inflated to 15 mmHg. Next a camera was introduced into the abdomen and the abdomen was inspected. Next under direct visualization three 5-mm ports were placed one subxiphoid and 2 subcostal. Next the gallbladder was elevated and retracted toward the right shoulder. The peritoneum was stripped from the gallbladder. The infundibulum was located and retracted laterally. Next the triangle of Calot was dissected and the cystic duct and cystic artery were identified. Cholangiograms were performed. The Urban clamp was used to clamp across the infundibulum and the catheter needle was inserted into the gallbladder. Under fluoroscopy contrast was instilled into the gallbladder and the common duct, cystic duct as well as proximal hepatic ducts were identified. There was good filling of the duodenum. There were no filling defects noted in the common bile duct. The clamp was removed as well as the needle and the infundibulum was grasped once more. Three hemolock clips were placed across the cystic duct. The cystic duct was then divided leaving 2 clips on the stump. The cystic artery was clipped and divided in the same fashion. There was a posterior branch was clipped as well. The hook cautery was then used to take the gallbladder off of the gallbladder bed. Hemostasis was obtained. Gallbladder fossa was irrigated and no active bleeding or bile leakage was noted. Next the camera was introduced in the subxiphoid port. An Endopouch bag was placed through the umbilical port and the gallbl adder was placed into it. The gallbladder was then removed through the umbilical incision. The camera was then reinserted through the umbilical port. The gallbladder fossa was inspected once more and noted to be hemostatic with no leaking bile. The abdomen was suctioned dry. The 5 mm ports were removed under direct visualization. The umbilical port was then removed and the air was removed from the abdomen. Next using an 0 Vicryl suture the umbilical fascia was closed in a [id number] fashion. The umbilical port site was irrigated local anesthetic was administered to all the incisions. All the incisions were closed with interrupted subcuticular 4-0 Monocryl sutures followed by Steri- Strips and dressings. The patient was awoken and taken to PACU in stable condition. Admit VTE Documentation VTE Mechan Device Prophylaxis: SCD's
--- NOTE | 2021-05-31 13:30 | GALL_PTH ---
PATIENT: PHU EDWARDS LOC: [facility] U#:[id number] AGE/SX: 56/F ROOM: NM320 RE05/31/[address]: Dr. Michael Wilder MD : 1965 BED: 1 DIS: 06/02/2021 SPEC #: [id number] RECD: 05/31/21 15:16 STATUS: DRISS HARRIS #: [id number] JOEL: 05/31/21 13:[address]: Michael Wilder DEPT: SURGICAL PATHOLOGY RECD BY: Effie Arevalo ENTERED: 06/01/21 08:08 SP TYPE: HUGO HENAO DR: Dr. Lester Corey MD Tissues: Gallbladder, NOS Procedures: Surgery Specimen Level III HEADER OPERATION: Laparoscopic cholecystectomy with IOC PRE-OP DIAGNOSIS: Cholelithiasis and acute cholecystitis TISSUE SUBMITTED: Gallbladder MICROSCOPIC DIAGNOSIS Gallbladder, cholecystectomy: Cholesterolosis, chronic cholecystitis and cholelithiasis. AM:cesia 06/02/2021 MICROSCOPIC DESCRIPTION Slides are reviewed. GROSS DESCRIPTION Received is one container labeled with the patient's name and designated gallbladder. The specimen consists of a gallbladder measuring 10 cm in length and up to 5 cm in diameter. The external surface is pink-salmeron, smooth and glistening for the most part. Focally it is granular, hemorrhagic and contains cautery artifact. The gallbladder contains green mucoid bile and one irregular black stone impacted at the cystic duct measuring 0.4 cm in greatest dimension. The mucosa is bile-stained and without any mass lesions. The gallbladder wall measures up to 0.4 cm in thickness. Increased amount of subserosal fat is also noted. The mucosa also shows several yellowish streaks consistent with cholesterolosis. Leather Currier sections from the gallbladder and the cystic duct are submitted in one cassette. / SJ:cesia 06/01/2021 TC:3 CPT: 40797
--- NOTE | 2021-05-31 14:18 | SUR.PHASEI ---
family updated via alumni secretary
[2021-05-31] MEDS: Acetaminophen 325 MG Tablet 650 MG PO (20:04)
[2021-05-31] MEDS: hydroCHLOROthiazide 12.5mg 12.5 MG PO (22:56)
[2021-05-31] MEDS: Losartan Potassium 100 MG Tablet PO (22:57)
[2021-05-31] MEDS: Amitriptyline 25 MG Tablet PO (23:11)
[2021-06-01] MEDS: Acetaminophen 325 MG Tablet 650 MG PO ×4 (00:19→19:50)
[2021-06-01 02:50] VITALS: BP 134/60; PULSE 66; RESP 16; TEMP 36.7; O2SAT 97
[2021-06-01 05:19] LABS: Absolute Lymphocyte Count 1.15 X10^3/uL (0.83-4.51); Absolute Neutrophil Count 5.4 X10^3/uL (2.0-7.7); Basophil# 0.01 X10^3/uL; Basophil% 0.1 % (0-1); Eosinophil# 0.01 X10^3/uL; Eosinophils% 0.1 % (0-5); Hematocrit 38.2 % (37-47); Hemoglobin 12.8 g/dL (12.0-15.0); Lymphocyte # 1.15 X10^3/ul (0.83-4.51); Lymphocyte % 16.1 % (19-41); Mean Corp Hgb Conc 33.5 g/dL (32-36); Mean Corpuscular Hgb 30.5 pg (27.0-32.0); Mean Corpuscular Volume 91.2 fL (81-99); Mean Platelet Vol. 9.4 fl (6.2-12.0); Monocyte# 0.55 X10^3/uL; Monocyte% 7.7 % (0-10); NRBC Flagged by Analyzer 0 % (0-5); Neutrophil # 5.37 X10^3/uL (2.7-7.7); Platelet Count 167 K/mm3 (150-450); RBC Distribution Width CV 12.4 % (11.6-14.6); RBC Distribution Width SD 41.4 fl (35.1-43.9); Red Blood Count 4.19 M/mm3 (4.2-5.4); White Blood Count 7.2 K/mm3 (4.4-11.0)
[2021-06-01 05:52] LABS: ALB/GLOB Ratio 1.1 RATIO (0.9-2.4); AST(SGOT) 158 U/L (15-37); Alanine Aminotransfer ALT/SGPT 295 U/L (13-56); Albumin, Serum 3.4 g/dL (3.2-5.0); Alkaline Phosphatase 117 U/L (45-117); Anion Gap 5 (5-15); BUN 11 mg/dL (7-18); BUN/Creat Ratio 11.9 RATIO (10-20); Calcium,Total 8.5 mg/dL (8.5-10.1); Chloride 104 mmol/L (98-107); Creatinine, Serum 0.92 mg/dL (0.55-1.02); EST Glomerular Filtration Rate 66 mL/min (>60); Est Glom Filt Rate - Afr Amer 80 mL/min (>60); Estimated Creatinine Clearance 64.82 ml/min; Globulin 3.1 g/dL (2.2-4.2); Glucose 124 mg/dL (74-106); Potassium 4.1 mmol/L (3.5-5.1); Protein, Total 6.5 g/dL (6.4-8.2); Sodium Level 138 mmol/L (136-145)
[2021-06-01 06:29] VITALS: BP 145/64; PULSE 72; RESP 16; TEMP 36.7; O2SAT 100
[2021-06-01 08:41] VITALS: BP 119/65; PULSE 73; RESP 16; TEMP 36.8; O2SAT 97
[2021-06-01] MEDS: hydroCHLOROthiazide 12.5mg 12.5 MG PO (08:48)
[2021-06-01] MEDS: Losartan Potassium 100 MG Tablet PO (08:48)
[2021-06-01] MEDS: oxyCODONE 5 MG Tablet PO (13:50)
[2021-06-01 14:04] VITALS: BP 129/66; PULSE 78; RESP 15; TEMP 37.4; O2SAT 95
[2021-06-01 19:42] VITALS: BP 136/65; PULSE 81; RESP 16; TEMP 37.3; O2SAT 96
[2021-06-01] MEDS: Magnesium Citrate 300 ML PO (22:59)
[2021-06-01] MEDS: Amitriptyline 25 MG Tablet PO (23:01)
[2021-06-02] MEDS: Acetaminophen 325 MG Tablet 650 MG PO ×3 (03:28→13:27)
[2021-06-02 03:30] VITALS: BP 123/69; PULSE 84; RESP 16; TEMP 37.1; O2SAT 96
--- NOTE | 2021-06-02 08:18 | PCM.PN.SRG ---
Subjective Subjective Patient was unable to pass gas yesterday until the evening. She did have an entire bottle of mag citrate which did not result in a bowel movement. She reports she is passing some flatus this morning. Objective Data Objective Data Vital Signs: Vital Signs Temp Pulse Resp BP Pulse Ox 98.8 F 84 16 123/69 H 96 06/02/21 03:30 06/02/21 03:30 06/02/21 03:30 06/02/21 03:30 06/02/21 03:30 Oxygen Flow Rate (L/min) 2 Oxygen Delivery Method CPAP Weight: 252 lb 13.923 oz Body Mass Index (BMI) 39.6 Intake & Output: Intake and Output for Last 24 Hours 05/31/21 06/01/21 06/02/21 23:59 23:59 23:59 Intake Total 3850.33 / 3850.33 1000 / 1000 Balance 3850.33 / 3850.33 1000 / 1000 Lab / Micro Data Result Diagrams: 06/01/21 04:49 06/01/21 04:49 Micro: Microbiology 05/31/21 00:30 Nasal Secretion SARS-CoV-2 Antigen (Rapid) - Final Physical Exam Const oriented x3 and no apparent distress Resp normal respiratory effort Cardio regular rate and regular rhythm GI soft to palpation Assessment & Plan Assessment/Plan (1) Acute cholecystitis: (2) Ileus, postoperative: PLAN: The patient had acute cholecystitis and laparoscopic cholecystectomy. She then had a postoperative ileus due to acute cholecystitis. She reports that she is started passing flatus and if she does well today I will discharge her home later today. Michael Wilder MD Pager: [facility] [address] [place] [address], [address] [place] [address] Office:
[2021-06-02 08:26] VITALS: BP 121/67; PULSE 79; RESP 15; TEMP 37.1; O2SAT 94
[2021-06-02] MEDS: Losartan Potassium 100 MG Tablet PO (08:29)
[2021-06-02] MEDS: hydroCHLOROthiazide 12.5mg 12.5 MG PO (08:29)
[2021-06-02] MEDS: Bisacodyl 10 MG Suppository RC (08:34)
--- NOTE | 2021-06-02 10:41 | NURSING ---
PT REPORTS RESULTS FROM SUPPOSITORY. ABD SOFTER. PT DOES SAY SHE FEELS LIKE SHE IS GOING TO HAVE ANOTHER BM.
--- NOTE | 2021-06-02 12:53 | PCM.DC.SUM ---
Providers Date of Admission: 05/31/21 Primary Care Physician: Dr. Ricco Corey MD Reason For Visit: ACUTE CHOLECYSTITIS Diagnosis Discharge Diagnosis (1) Acute cholecystitis: Status: Acute Code(s): K81.0 - Acute cholecystitis (2) Ileus, postoperative: Status: Acute Code(s): K91.89 - Other postprocedural complications and disorders of digestive system; K56.7 - Ileus, unspecified Medications at Discharge Home Medications B cmplx 4-vit V0-E-jmwyd-zinc 1 ea PO DAILY 01/27/16 albuterol sulfate 2 puff INHALATION Q4H PRN PRN 01/27/16 ascorbic acid (vitamin C) 500 mg PO BIDCM 01/27/16 aspirin 81 mg PO DAILY@0800 01/27/16 calcium citrate 630 mg PO DAILY 01/27/16 cholecalciferol (vitamin D3) 1,000 unit PO DAILY 01/27/16 coenzyme C35-gccwdhg E 1 ea PO DAILY 01/27/16 fexofenadine-pseudoephedrine 1 ea PO DAILY 01/27/16 krill oil 500 mg PO DAILY 01/27/16 losartan-hydrochlorothiazide 1 tab PO DAILY 01/27/16 montelukast 10 mg PO QHS 01/27/16 famotidine 20 mg PO DAILY PRN PRN 02/01/16 amitriptyline 25 mg tablet 25 mg PO QHS tablet 05/15/20 clobetasol 0.05 % topical cream 1 applic TOPICAL PRN gm 05/15/20 escitalopram oxalate 10 mg tablet 10 mg PO DAILY tablet 05/15/20 mometasone-formoterol HFA 100 mcg-5 mcg/actuation aerosol inhaler 2 inh INHALATION QHS gm 05/15/20 acetaminophen [Tylenol] 650 mg PO Q4H PRN PRN #0 tab 06/02/21 oxycodone 5 - 10 mg PO Q4H PRN PRN 5 Days #20 tab 06/02/21 Hospital Course Operations cholecystecomy Summary of Care Provided Hospital Course: Patient was admitted with acute cholecystitis and was taken for laparoscopic cholecystectomy. After surgery she developed postoperative ileus due to the infection. After few days the patient started passing gas and having bowel movements and tolerating diet was discharged home. Weight / BMI Weight Weight: 252 lb 13.923 oz Body Mass Index (BMI) 39.6 ABG / Lab / Microbiology Data Result Diagrams: 06/01/21 04:49 06/01/21 04:49 Microbiology: Microbiology 05/31/21 00:30 Nasal Secretion SARS-CoV-2 Antigen (Rapid) - Final D/C Instructions Discharge Diet: Light diet - advance as tolerated Discharge Activity: May Not Drive (for 2-3 days or while taking narcotic pain medications.) and May Shower Lifting Restrictions: 20 lbs for 2 weeks Additional Activity Instructions: Pain medication may cause nausea. You should typically eat light foods as you take your pain medications. Pain medication may also cause constipation. If this is a problem for you, please discuss with your doctor. Call your doctor if your incision/area has: Continuous Slow Oozing, Sudden Increased Bleeding, Increased Pain/ Swelling, Increased Redness and Foul Smelling Discharge Call your doctor if you observe: Fever of 101 or Higher Suture Line Care: Avoid Pulling/Pushing and Avoid Pinching/Bending Remove Dressing in: 1 day Cleanse incision/area with: Soap & Water Additional Dressing/Incision Instructions: When you remove dressing, leave Steri-Strips on until your follow-up appointment, or until the Steri-Strips fall off on their own. Please Follow Up With: Michael Wilder MD When: Please call to schedule 2 week follow up appointment. [phone] Meaningful Use Info Meaningful Use Diagnoses (Choose all that apply): None applicable Discharge Plan Admission Admit Date/Time: 05/31/21 00:10 Attending Provider: Michael Wilder Primary Care Provider: Ricco Corey Discharge Orders/Prescriptions Prescriptions: New acetaminophen [Tylenol] 325 mg Tablet 650 mg PO Q4H PRN PRN (Reason: P/F) Qty: 0 RF: 0 oxycodone 5 mg Tablet 5 - 10 mg PO Q4H PRN PRN (Reason: Pain Score 4-10) 5 Days Qty: 20 RF: 0 Continued amitriptyline 25 mg tablet 25 mg PO QHS RF: 0 mometasone-formoterol 100-5 mcg/actuation HFA aerosol inhaler 2 inh INHALATION QHS RF: 0 clobetasol 0.05 % cream 1 applic TOPICAL PRN (Reason: geovani-area) RF: 0 escitalopram oxalate 10 mg tablet 10 mg PO DAILY RF: 0 aspirin 81 MG tablet 81 mg PO DAILY@0800 RF: 0 ascorbic acid (vitamin C) 500 MG tablet 500 mg PO BIDCM RF: 0 montelukast 10 MG tablet 10 mg PO QHS RF: 0 albuterol sulfate 1 INHALER inhaler 2 puff Inhalation Q4H PRN PRN (Reason: Asthma) RF: 0 calcium citrate 200 MG tablet 630 mg PO DAILY RF: 0 fexofenadine-pseudoephedrine 1 EACH tablet extended release 24 hr 1 ea PO DAILY RF: 0 losartan-hydrochlorothiazide 1 TAB tablet 1 tab PO DAILY RF: 0 cholecalciferol (vitamin D3) 1,000 UNIT tablet 1,000 unit PO DAILY RF: 0 B cmplx 4-vit P3-V-ovmjb-zinc 1 EACH tablet 1 ea PO DAILY RF: 0 coenzyme U70-mivwwzu E 1 EACH capsule 1 ea PO DAILY RF: 0 krill oil 500 MG capsule 500 mg PO DAILY RF: 0 famotidine 20 MG tablet 20 mg PO DAILY PRN PRN (Reason: Nausea) RF: 0 Referrals / Follow Up: Ricco Corey MD [Primary Care Provider] - Disposition Disposition (needs filled in before D/C Order can be placed): Home, Self Care
[2021-06-02 12:58] VITALS: BP 113/59; PULSE 81; RESP 16; TEMP 36.6; O2SAT 94
== END 2021-06-02 14:31 | disposition home or self-care (01) | DRG 418 ==
LOC: ED 23:26 → MS3 05-31 00:18
PROVIDERS: Admitting Provider Surgery; Emergency Provider Emergency Medicine; PCP Family Medicine; Visit Provider Surgery
PROC: 0FT44ZZ Resection of Gallbladder, Percutaneous Endoscopic Approach (ICD-10-PCS; CPT 47610; principal; 2021-05-31 13:15)
DX: K80.00 Calculus of gallbladder with acute cholecystitis without obstruction (principal); K56.7 Ileus, unspecified; K91.89 Other postprocedural complications and disorders of digestive system; K76.0 Fatty (change of) liver, not elsewhere classified; E78.00 Pure hypercholesterolemia, unspecified; I10 Essential (primary) hypertension; K57.30 Diverticulosis of large intestine without perforation or abscess without bleeding
CPT/HCPCS: 36415; 71045; 74177; 74300; 76000; 80048; 80053; 80076; 81001; 83690; 85025; 87811; 88304; 93005; 94762; 99282; J7030; J7050; J7120; Q9967; A4216; J2405

== ENCOUNTER → 2021-09-23 | Outpatient (CLI) | payer OTHER, SELFPAY ==
--- NOTE | 2021-09-23 15:42 | BI_ITS ---
MAMMOGRAPHY - BILATERAL SCREENING REASON FOR EXAM: Female, 56 years old. Routine annual screening examination. PERTINENT HISTORY: Grandmother with breast cancer. Aunts with breast cancer. Prior left breast surgery for sebaceous cyst. TECHNIQUE: Digital bilateral breast shreya (3D mammographic acquisition) in the CC and MLO projections. 2-D mediolateral oblique (MLO) and craniocaudad (CC) views of both breasts were obtained. CAD: Full Field Digital Mammography with Computer Added Detection was performed. COMPARISON: Comparison is made with prior study dated 07/15/2020 and 03/20/2019. FINDINGS: Breast Composition: There are scattered areas of fibroglandular density. There are no dominant masses or suspicious calcifications. Stable 5 mm well-defined nodule in the upper outer aspect of the left breast. No other significant abnormalities are identified. There has been no significant change since the prior study. BI/SCRN MAMM (CAD)W/SHREYA BILAT IMPRESSION: Stable bilateral screening mammogram. Yearly follow-up mammogram recommended. (A) ASSESSMENT CATEGORY: BIRADS Category 2: Benign. A letter regarding these results will be sent to the patient by the facility within 30 days. Approximately 10% of breast cancers are not detected by mammography. A normal mammogram should not delay biopsy of a clinically suspicious abnormality. [id number] Electronically Signed: Feliciano Linder MD at 8:19 EDT ,
== END | disposition home or self-care (01) ==
LOC: OPBI 15:41
PROVIDERS: PCP Family Medicine; Visit Provider Family Medicine
DX: Z12.31 Encounter for screening mammogram for malignant neoplasm of breast (principal)
CPT/HCPCS: 77063; 77067

== ENCOUNTER → 2022-05-28 | Outpatient (CLI) | payer OTHER, SELFPAY ==
[2022-05-28 11:49] LABS: ALB/GLOB Ratio 1.1 RATIO (0.9-2.4); AST(SGOT) 23 U/L (15-37); Alanine Aminotransfer ALT/SGPT 46 U/L (13-56); Albumin, Serum 3.6 g/dL (3.2-5.0); Alkaline Phosphatase 79 U/L (45-117); Anion Gap 4 (5-15); BUN 20 mg/dL (7-18); BUN/Creat Ratio 20.3 RATIO (10-20); Chloride 103 mmol/L (98-107); Cholesterol 170 mg/dL (200); Creatinine, Serum 0.99 mg/dL (0.55-1.02); EST Glomerular Filtration Rate 61 mL/min (>60); Est Glom Filt Rate - Afr Amer 74 mL/min (>60); Globulin 3.3 g/dL (2.2-4.2); Glucose 97 mg/dL (74-106); High Density Lipoprotein 45 mg/dL; Potassium 4.2 mmol/L (3.5-5.1); Protein, Total 6.9 g/dL (6.4-8.2); Sodium Level 138 mmol/L (136-145); Triglycerides 116 mg/dL; Very Low Density Lipoprotein 23 mg/dL (5-40)
[2022-05-30 09:06] LABS: Vitamin B12 354 pg/mL (211-911); Vitamin D,25 Hydroxy 82.2 ng/mL
== END | disposition home or self-care (01) ==
PROVIDERS: PCP Family Medicine; Referring Provider Family Medicine; Visit Provider Family Medicine
DX: K76.0 Fatty (change of) liver, not elsewhere classified (principal); E72.12 Methylenetetrahydrofolate reductase deficiency; Z13.220 Encounter for screening for lipoid disorders; G62.9 Polyneuropathy, unspecified; L40.9 Psoriasis, unspecified
CPT/HCPCS: 36415; 80053; 80061; 82306; 82607; 82746

== ENCOUNTER → 2022-09-05 | Outpatient (CLI) | payer OTHER, SELFPAY ==
[2022-09-05 13:16] LABS: Microalbumin,Random Urine 15.6 mg/L (NO RANGE EST.)
[2022-09-05 13:22] LABS: Vitamin B12 1063 pg/mL (211-911)
== END | disposition home or self-care (01) ==
LOC: LAB 12:13
PROVIDERS: PCP Family Medicine; Referring Provider Family Medicine; Visit Provider Family Medicine
DX: E53.8 Deficiency of other specified B group vitamins (principal)
CPT/HCPCS: 36415; 82043; 82570; 82607

== ENCOUNTER → 2022-10-11 | Outpatient (CLI) | payer OTHER, SELFPAY ==
--- NOTE | 2022-10-11 15:34 | BI_ITS ---
MAMMOGRAPHY - BILATERAL SCREENING REASON FOR EXAM: Female, 57 years old. Routine annual screening examination. PERTINENT HISTORY: Grandmother with breast cancer. Aunts with breast cancer. TECHNIQUE: Digital bilateral breast shreya (3D mammographic acquisition) in the CC and MLO projections. 2-D mediolateral oblique (MLO) and craniocaudad (CC) views of both breasts were obtained. CAD: Full Field Digital Mammography with Computer Added Detection was performed. COMPARISON: Comparison is made with prior study dated September 23, 2021 and July 15, 2020. FINDINGS: Breast Composition: There are scattered areas of fibroglandular density. There are no dominant masses or suspicious calcifications. Stable 5 mm well-defined nodule in the upper lateral aspect of the left breast. New 5.6 mm nodule in the central slightly medial aspect of the left breast. Correlation with ultrasound is recommended. No other significant abnormalities are identified. BI/SCRN MAMM (CAD)W/SHREYA BILAT IMPRESSION: New 5.6 mm nodule in the central slightly medial aspect of the left breast. Correlation with ultrasound is recommended. ASSESSMENT CATEGORY: BIRADS Category 0: Incomplete. Need additional imaging evaluation. A letter regarding these results will be sent to the patient by the facility within 30 days. Approximately 10% of breast cancers are not detected by mammography. A normal mammogram should not delay biopsy of a clinically suspicious abnormality. [id number] Electronically Signed: Feliciano Linder MD at 8:14 EDT ,
== END | disposition home or self-care (01) ==
LOC: OPBI 15:33
PROVIDERS: PCP Family Medicine; Referring Provider Family Medicine; Visit Provider Family Medicine
DX: Z12.31 Encounter for screening mammogram for malignant neoplasm of breast (principal); Z80.3 Family history of malignant neoplasm of breast
CPT/HCPCS: 77063; 77067

== ENCOUNTER → 2022-10-14 | Outpatient (CLI) | payer OTHER, SELFPAY ==
--- NOTE | 2022-10-14 13:28 | US_ITS ---
STUDY: ULTRASOUND BREAST - LEFT REASON FOR EXAM: Female, 57 years old. Abnormal mammogram. TECHNIQUE: Axial and longitudinal images of the LEFT breast were performed with a high resolution ultrasound transducer. # OF IMAGES: 18 COMPARISON: Comparison is made with prior mammogram dated October 11, 2022. FINDINGS: LEFT Breast: The mammographic abnormality corresponds to a 7 mm x 6 mm x 5 mm cyst at the 8:00 position of the breast at 2 cm from the nipple. US/Breast Limited Unilateral IMPRESSION: 7 mm x 6 mm x 5 mm cyst at the 8:00 position of the breast at 2 cm from nipple. ASSESSMENT CATEGORY: BIRADS Category 2: Benign. A letter regarding these results will be sent to the patient by the facility within 30 days. Electronically Signed: Feliciano Linder MD at 14:03 EDT ,
== END | disposition home or self-care (01) ==
LOC: OPUS 13:26
PROVIDERS: PCP Family Medicine; Referring Provider Family Medicine; Visit Provider Family Medicine
DX: N63.23 Unspecified lump in the left breast, lower outer quadrant (principal)
CPT/HCPCS: 76642

== ENCOUNTER → 2023-02-22 | Outpatient (CLI) | payer OTHER, SELFPAY | END | disposition home or self-care (01) | LOC: SL 02-23 07:12 | PROVIDERS: PCP Family Medicine; Referring Provider Family Medicine; Visit Provider Family Medicine | DX: G47.33 Obstructive sleep apnea (adult) (pediatric) (principal) | CPT/HCPCS: 95811 ==

== ENCOUNTER → 2023-02-24 | Outpatient (CLI) | payer OTHER, SELFPAY ==
--- NOTE | 2023-02-24 14:35 | RAD_ITS ---
INDICATION: DYSPNEA EXAMINATION/TECHNIQUE: X-RAY - XR Chest 2 Views COMPARISON: 05/31/2021 FINDINGS: LINES/DEVICES: None. LUNGS: No consolidation, edema or effusion. No pneumothorax. MEDIASTINUM AND CARDIOVASCULAR STRUCTURES: Cardiac silhouette not enlarged. Central airways and mediastinal contour are unremarkable. BONES AND SOFT TISSUES: No acute changes. RAD/Chest PA and Lateral IMPRESSION: No radiographic evidence of acute cardiopulmonary disease. Electronically Signed: Ervin Sanford MD at 18:15 EST ,
== END | disposition home or self-care (01) ==
PROVIDERS: PCP Family Medicine; Referring Provider Specialist; Visit Provider Specialist
DX: R06.00 Dyspnea, unspecified (principal)
CPT/HCPCS: 71046

== ENCOUNTER → 2023-06-05 | Outpatient (CLI) | payer OTHER, SELFPAY ==
[2023-06-05 12:34] LABS: Hematocrit 41.4 % (37-47); Hemoglobin 13.5 g/dL (12.0-15.0); Mean Corp Hgb Conc 32.6 g/dL (32-36); Mean Corpuscular Hgb 30.3 pg (27.0-32.0); Mean Platelet Vol. 9.6 fl (6.2-12.0); Platelet Count 185 K/mm3 (150-450); RBC Distribution Width SD 44.3 fl (35.1-43.9); Red Blood Count 4.45 M/mm3 (4.2-5.4); White Blood Count 6.2 K/mm3 (4.4-11.0)
[2023-06-05 12:54] LABS: Vitamin B12 561 pg/mL (211-911); Vitamin D,25 Hydroxy 83.2 ng/mL
[2023-06-05 13:11] LABS: AST(SGOT) 30 U/L (15-37); Alanine Aminotransfer ALT/SGPT 53 U/L (13-56); Albumin, Serum 3.6 g/dL (3.2-5.0); Alkaline Phosphatase 73 U/L (45-117); Anion Gap 6 (5-15); BUN 15 mg/dL (7-18); BUN/Creat Ratio 15.1 RATIO (10-20); Calcium,Total 8.6 mg/dL (8.5-10.1); Chloride 103 mmol/L (98-107); Cholesterol 151 mg/dL (200); Creatinine, Serum 0.99 mg/dL (0.55-1.02); EST Glomerular Filtration Rate 61 mL/min (>60); Est Glom Filt Rate - Afr Amer 73 mL/min (>60); Globulin 3.5 g/dL (2.2-4.2); Glucose 98 mg/dL (74-106); High Density Lipoprotein 40 mg/dL; Protein, Total 7.1 g/dL (6.4-8.2); Sodium Level 138 mmol/L (136-145); Thyroid Stim Hormone (TSH) 1.27 uIU/mL (0.358-3.74); Triglycerides 180 mg/dL; Very Low Density Lipoprotein 36 mg/dL (5-40)
== END | disposition home or self-care (01) ==
LOC: MFPLAB 10:57
PROVIDERS: PCP Family Medicine; Visit Provider Family Medicine
DX: I10 Essential (primary) hypertension (principal); G25.0 Essential tremor; E53.8 Deficiency of other specified B group vitamins; E72.12 Methylenetetrahydrofolate reductase deficiency
CPT/HCPCS: 36415; 80053; 80061; 82306; 82607; 84443; 85027

== ENCOUNTER → 2024-01-26 | Outpatient (CLI) | payer OTHER, SELFPAY ==
--- NOTE | 2024-01-26 16:01 | RAD_ITS ---
STUDY: X-RAY - ABDOMEN/PELVIS REASON FOR EXAM: Female, 58 years old. RIGHT FLANK PAIN TECHNIQUE: Single AP view of the abdomen / pelvis. COMPARISON: CT scan 05/30/2021. FINDINGS: Normal visualized lung bases. There is a 9 mm calcific density projecting in the area of the mid right kidney which could be a renal stone. No definite stones seen on the left. No definite stones seen along the course of the ureters. Probable phleboliths in the pelvis. There is an unremarkable bowel gas pattern. There is no demonstrated free abdominal air. The visualized liver, spleen and kidneys are grossly normal in size and morphology. Normal soft tissue structures. Normal visualized osseous structures. RAD/Abdomen Single View IMPRESSION: 9 mm possible mid right renal stone. Electronically Signed: Luiz Fink MD at 23:01 EST ,
== END | disposition home or self-care (01) ==
LOC: MTRAD 15:59
PROVIDERS: PCP Family Medicine; Referring Provider Family Medicine; Visit Provider Family Medicine
DX: R10.9 Unspecified abdominal pain (principal)
CPT/HCPCS: 74018

== ENCOUNTER → 2024-02-19 | Outpatient (CLI) | payer OTHER, SELFPAY ==
--- NOTE | 2024-02-19 17:44 | CYSPIN_PTH ---
PATIENT: PHU EDWARDS LOC: [facility] U#:[id number] AGE/SX: 58/F ROOM: RE02/19/[address]: Dr. Yessy Barbosa MD : 1965 BED: DIS: 02/19/2024 SPEC #: [id number] RECD: 02/20/24 10:35 STATUS: DRISS REQ #: [id number] JOEL: 02/19/24 17:[address]: Yessy Barbosa DEPT: CYTOLOGY RECD BY: Effie Arevalo ENTERED: 02/20/24 10:36 SP TYPE: CYSPIN FL OTHR DR: Dr. Lester Corey MD Tissues: Urine Procedures: Pap Stain (control) Special Stain Group II Cytospin Fluid HEADER OPERATION: Not noted PRE-OP DIAGNOSIS: Gross hematuria TISSUE SUBMITTED: Urine DIAGNOSIS CYTOLOGY Urine, Cytology: Urothelial cells, singly and in occasional small clusters, with maturities ranging from basal-like to mature, in a background of blood. No dysplasia identified. (See Comment) COMMENT It is not specified if this specimen was collected as a clean catch or by catheterization. CYTOLOGY STUDY Slides are reviewed. CYTOLOGY GROSS Received is 60 ml of yellow cloudy fluid labeled with the patient's name and and designated per the requisition as urine. Submitted for cytology preparation. /CW:cyndi 02/20/24 CPT: 38930
[2024-02-19 17:45] LABS: Cytology, Body Fluid / CSF SEE PATHOLOGY REPORT
== END | disposition home or self-care (01) ==
PROVIDERS: PCP Family Medicine; Referring Provider Urology; Visit Provider Urology
DX: R31.0 Gross hematuria (principal)
CPT/HCPCS: 88108; 88313

== ENCOUNTER → 2024-03-15 | Outpatient (CLI) | payer OTHER, SELFPAY ==
--- NOTE | 2024-03-15 16:05 | CT_ITS ---
STUDY: CT ABDOMEN AND PELVIS WITHOUT AND WITH CONTRAST REASON FOR EXAM: Female, 58 years old. R STONE GROSS HEMATURIA RADIATION DOSAGE (If Supplied By Facility): CTDIvol = ( 27.36 ) mGy, DLP = ( 4640.83 ) mGycm TECHNIQUE: IV 100mL Isovue-370 was administered. Transaxial images were obtained from the dome of the diaphragm to the symphysis pubis. Multiplanar coronal and sagittal images were reformatted. The protocol utilizes one or more of the following dose reduction techniques: automated exposure control, adjustment of mA and/or kV according to patient size,and/or use of iterative reconstruction technique. COMPARISON: FINDINGS: The visualized lung bases are unremarkable. The visualized portions of the heart are within normal limits. Normal liver. Normal gallbladder and extrahepatic biliary system. Normal spleen. Normal pancreas. Normal bilateral adrenal glands. Normal visualized stomach. Normal small intestine. Diverticulosis of the colon. The appendix is not visualized. Normal abdominal aorta. No retroperitoneal adenopathy. Up to 1 cm calculi in the right kidney. Bilateral renal cysts. Atrophic left kidney. Normal urinary bladder. Normal abdominal wall. Normal osseous structures. CT/CT Abd/Pelvis W/WO Contrast IMPRESSION: Nonobstructing right renal calculi. Bilateral renal cysts. Electronically Signed: Patricio Zavala DO at 17:[address] [facility] Reading Location ID and State: [facility] / [place] Tel [phone], Service support ,
== END | disposition home or self-care (01) ==
PROVIDERS: PCP Family Medicine; Referring Provider Urology; Visit Provider Urology
DX: N20.0 Calculus of kidney (principal); R31.0 Gross hematuria
CPT/HCPCS: 74178; Q9967

== ENCOUNTER → 2024-03-20 | Outpatient (CLI) | payer OTHER, SELFPAY ==
--- NOTE | 2024-03-20 13:53 | BI_ITS ---
MAMMOGRAPHY - BILATERAL SCREENING REASON FOR EXAM: Female, 58 years old. Routine annual screening examination. PERTINENT HISTORY: Mother with breast cancer. Grandmother with breast cancer. Aunts with breast cancer. TECHNIQUE: Digital bilateral breast shreya (3D mammographic acquisition) in the CC and MLO projections. 2-D mediolateral oblique (MLO) and craniocaudad (CC) views of both breasts were obtained. CAD: Full Field Digital Mammography with Computer Added Detection was performed. COMPARISON: Comparison is made with prior study October 11, 2022 and September 23, 2021. FINDINGS: Breast Composition: There are scattered areas of fibroglandular density. There are no dominant masses or suspicious calcifications. Stable 5 mm well-defined nodule in the upper lateral aspect of the left breast as well as a 5.6 mm nodule in the central slightly medial aspect of the left breast. Prior sonogram demonstrated a cyst. No other significant abnormalities are identified. There has been no significant change since the prior study. BI/SCRN MAMM (CAD)W/SHREYA BILAT IMPRESSION: Stable bilateral screening mammogram. Yearly follow-up mammogram recommended. (A) ASSESSMENT CATEGORY: BIRADS Category 2: Benign. A letter regarding these results will be sent to the patient by the facility within 30 days. Approximately 10% of breast cancers are not detected by mammography. A normal mammogram should not delay biopsy of a clinically suspicious abnormality. [id number] Electronically Signed: Feliciano Linder MD at 9:05 EST ,
== END | disposition home or self-care (01) ==
LOC: OPBI 13:53
PROVIDERS: PCP Family Medicine; Referring Provider Family Medicine; Visit Provider Family Medicine
DX: Z12.31 Encounter for screening mammogram for malignant neoplasm of breast (principal)
CPT/HCPCS: 77063; 77067

== ENCOUNTER → 2024-03-25 | Outpatient (CLI) | payer OTHER, SELFPAY ==
--- NOTE | 2024-03-25 16:29 | RAD_ITS ---
STUDY: X-RAY - ABDOMEN/PELVIS REASON FOR EXAM: Female, 58 years old. Follow-up of right kidney stone. TECHNIQUE: Single AP view of the abdomen / pelvis. COMPARISON: January 26, 2024 FINDINGS: Normal visualized lung bases. There is an unremarkable bowel gas pattern. There is no demonstrated free abdominal air. Ovoid calcification is now projected medial to the lower pole of the right kidney. Normal soft tissue structures. Normal visualized osseous structures. RAD/Abdomen Single View IMPRESSION: Right-sided calcification projected medial to the lower pole of the right kidney. Electronically Signed: Berry Ayers MD at 10:[address] [facility] ,
== END | disposition home or self-care (01) ==
LOC: MTRAD 16:28
PROVIDERS: PCP Family Medicine; Referring Provider Urology; Visit Provider Urology
DX: N20.0 Calculus of kidney (principal)
CPT/HCPCS: 74018

== ENCOUNTER 2024-04-03 13:11 | Emergency (ER) | payer OTHER, SELFPAY ==
[2024-04-03 13:12] VITALS: BP 141/85; PULSE 97; RESP 25; TEMP 36.6; O2SAT 97; BMI 42.4
--- NOTE | 2024-04-03 13:13 | EKG12_ITS ---
Test Reason : CHEST DISCOMFORT Blood Pressure : */* mmHG Vent. Rate : 92 BPM Atrial Rate : 92 BPM P-R Int : 152 ms QRS Dur : 76 ms QT Int : 360 ms P-R-T Axes : 53 52 76 degrees QTcB Int : 445 ms Normal sinus rhythm Normal ECG Confirmed by LIDYA DUVAL, DOUG ([id number]), newspaper or periodical editor PAULINO CISNEROS ([id number]) on 04/06/2024 7:19:08 AM Referred By: Confirmed By: DOUG BOSE MD
--- NOTE | 2024-04-03 13:40 | RAD_ITS ---
EXAM: XR Chest, 1 View CLINICAL INDICATION: TECHNIQUE: Frontal view of the chest. COMPARISON: No relevant prior studies available. FINDINGS: LUNGS AND PLEURAL SPACES: Unremarkable. No consolidation. No pneumothorax. HEART: Unremarkable. No cardiomegaly. MEDIASTINUM: Unremarkable. Normal mediastinal contour. BONES/JOINTS: Unremarkable. No acute fracture. RAD/Chest 1 View (Portable) IMPRESSION: No acute cardiopulmonary process. [facility]
[2024-04-03 14:00] VITALS: BP 130/72; PULSE 84; RESP 11; O2SAT 93
[2024-04-03 14:06] LABS: Absolute Lymphocyte Count 1.44 X10^3/uL (0.83-4.51); Absolute Neutrophil Count 5.6 X10^3/uL (2.0-7.7); Basophil# 0.04 X10^3/uL; Basophil% 0.5 % (0-1); Eosinophil# 0.11 X10^3/uL; Eosinophils% 1.4 % (0-5); Hematocrit 42.9 % (37-47); Hemoglobin 14.4 g/dL (12.0-15.0); Lymphocyte # 1.44 X10^3/ul (0.83-4.51); Lymphocyte % 18.4 % (19-41); Mean Corp Hgb Conc 33.6 g/dL (32-36); Mean Corpuscular Hgb 30.7 pg (27.0-32.0); Mean Corpuscular Volume 91.5 fL (81-99); Mean Platelet Vol. 9.6 fl (6.2-12.0); Monocyte# 0.51 X10^3/uL; Monocyte% 6.5 % (0-10); NRBC Flagged by Analyzer 0 % (0-5); Neutrophil % 71.8 % (47-70); Platelet Count 194 K/mm3 (150-450); RBC Distribution Width CV 13.2 % (11.6-14.6); Red Blood Count 4.69 M/mm3 (4.2-5.4); White Blood Count 7.8 K/mm3 (4.4-11.0)
[2024-04-03 14:21] LABS: Anion Gap 8 (5-15); BUN 21 mg/dL (7-18); BUN/Creat Ratio 21.3 RATIO (10-20); Calcium,Total 9.4 mg/dL (8.5-10.1); Chloride 105 mmol/L (98-107); Creatinine, Serum 0.98 mg/dL (0.55-1.02); EST Glomerular Filtration Rate 61 mL/min (>60); Est Glom Filt Rate - Afr Amer 74 mL/min (>60); Estimated Creatinine Clearance 81.92 ml/min; Glucose 126 mg/dL (74-106); Potassium 3.8 mmol/L (3.5-5.1); Sodium Level 138 mmol/L (136-145); Troponin-I HS (w/2H Reflex) 3 pg/mL (3.0-54.0)
[2024-04-03 15:00] VITALS: BP 146/64; PULSE 85; RESP 16
--- NOTE | 2024-04-03 15:04 | CT_ITS ---
PROCEDURE: CHEST WITHOUT CONTRAST REASON FOR EXAM: Painful inspiration; worsening. TECHNIQUE: Chest CT with intravenous contrast. COMPARISON: None. FINDINGS: Hardware: None. Lymph nodes: No mediastinal hilar or axillary lymphadenopathy. Heart and Vasculature: Coronary artery calcifications. Thoracic aorta and pulmonary arteries are unremarkable. Lungs and Airways: Mild dependent changes of the bilateral lungs. Pleura: No pleural effusion. No pneumothorax. Upper Abdomen: Visualized portions of the upper abdominal viscera are unremarkable. Bones: Bone windows are unremarkable. CT/Chest without Contrast IMPRESSION: No acute chest abnormalities. One or more dose reduction techniques were used (e.g., Automated exposure contr ol, adjustment of the mA and/or kV according to patient size, use of iterative reconstruction technique). Reading Location: [id number]
[2024-04-03] MEDS: morphine 8 MG/ML Syringe 6 MG IV ×2 (15:23→16:49)
[2024-04-03 15:57] LABS: Reflex Troponin-HS? (from REC) Y
[2024-04-03 16:00] VITALS: BP 136/67; PULSE 79; RESP 14
--- NOTE | 2024-04-03 16:27 | ED.VIS.CHEST ---
HPI History of Present Illness Chief Complaint: Chest Pain Informant: patient Narrative Narrative: Patient is a 59-year-old female with history of asthma presenting with left-sided chest, axilla and arm pain. Patient states last week she had 2 falls, 1 where she startled herself from a dream and fell out of bed another time she when she fell but she does not recall why. Over the past 3 days she has had progressive worsening pain of her left side of her chest underneath her breast and underneath her axilla area radiating to her scapula. She has also noticed bruising over her left upper arm. She states the pain became severe today and she could not even move her arm. Denies any recent cough or URI symptoms. Any type of movement or deep breathing. She came to the ER for further evaluation. Did not take anything for pain prior to arrival. Is worse with no fever or chills reported. States she does cough from time to time because of her asthma but this does not feel similar to that. [facility] Medical History Wears glasses History of steroid therapy Arthritis Fatty liver Back pain Spinal stenosis in cervical region History of diverticulitis Gastric reflux Chronic cough Shortness of breath on exertion History of pain when walking History of edema History of echocardiogram History of irregular heartbeat Post-menopausal Injury of head and neck CPAP (continuous positive airway pressure) dependence High cholesterol History of stress test Acute cholecystitis Hemorrhoids Depression Nipple discharge Duct ectasia of breast Bilateral breast cysts Renal calculi Asthma MTHFR (methylene THF reductase) deficiency and homocystinuria HTN (hypertension) Sleep apnea Small fiber neuropathy Home Medications ?Medication ?Instructions ?Recorded ?Last Taken ?Type aspirin 81 mg tablet,delayed 81 mg PO DAILY@0800 [facility] 01/27/16 Unknown History release calcium citrate 630 mg PO DAILY supplement 01/27/16 Unknown History cholecalciferol (vitamin D3) 25 1,000 unit PO DAILY supplement 01/27/16 Unknown History mcg (1,000 unit) tablet coenzyme Q10 200 mg-vitamin E 20 1 ea PO DAILY supplement 01/27/16 Unknown History unit capsule losartan 100 1 tab PO DAILY BP 01/27/16 Unknown History mg-hydrochlorothiazide 12.5 mg tablet montelukast 10 mg tablet 10 mg PO QHS asthma 01/27/16 Unknown History amitriptyline 25 mg tablet 25 mg PO QHS nerve pain 05/15/20 Unknown History clobetasol 0.05 % topical cream 1 applic topical PRN PRN geovani-area 05/15/20 Unknown History acetaminophen 325 mg tablet 650 mg (2 x 325 mg) PO Q4H PRN PRN 06/02/21 Unknown Rx (Tylenol) P/F #0 tabs alpha lipoic acid 600 mg capsule 600 mg PO DAILY 03/08/23 Unknown History ascorbic acid (vitamin C) 500 mg 500 mg PO BIDCM supplement 03/08/23 Unknown History tablet cinnamon bark 500 mg capsule 1,000 mg PO DAILY 03/08/23 Unknown History levalbuterol tartrate 45 2 puff inhalation Q4-6H PRN 03/08/23 Unknown History mcg/actuation aerosol inhaler shortness of breath or wheezing (Xopenex HFA) mecobalamin (vitamin B12) 1,000 1,000 mcg PO DAILY 03/08/23 Unknown History mcg chewable tablet (B12 Active) milk thistle 175 mg tablet 175 mg PO BID 03/08/23 Unknown History omeprazole 40 mg capsule,delayed 40 mg PO DAILY 03/08/23 Unknown History release budesonide 160 mcg-glycopyr 9 2 inh inhalation BID 03/28/24 Unknown History mcg-formot 4.8 mcg/actuation HFA inhaler (Breztri Aerosphere) bupropion HCl 150 mg 24 hr tablet, 150 mg PO DAILY 03/28/24 Unknown History extended release cetirizine 10 mg capsule (Zyrtec) 10 mg PO DAILY 03/28/24 Unknown History hydrocodone-acetaminophen 5-325mg 1 tab PO Q6H PRN PRN Pain 3 days 04/03/24 Unknown Rx 5mg-325mg #12 TABLETS Allergy/AdvReac Type Severity Reaction Status Date / Time Seasonal Allergies: Uncoded Allergy Mild Other Verified 04/03/24 13:11 Sulfa (Sulfonamide Allergy Hives Verified 04/03/24 13:11 Antibiotics) JELANI Inhibitors AdvReac COUGH Verified 04/03/24 13:11 Family History Father Hypertension Mother Hypertension Aunt Breast cancer Aunt Breast cancer Surgical History Hx of colonoscopy Hx laparoscopic cholecystectomy History of hysterectomy History of fusion of cervical spine Social History Smoking Status: Never smoker ROS ROS ED Constitutional Constitutional ED: Denies chills or fever(s) Cardiovascular Cardiovascular: Reports as per HPI and chest pain Respiratory/Chest Respiratory/Chest: Denies cough or dyspnea Gastrointestinal Gastrointestinal: Denies nausea or vomiting Musculoskeletal Musculoskeletal: Reports other Details: left arm pain Integumentary Denies Abrasions or rash Neurologic Neurologic: Denies paresthesias or weakness Psychiatric Psychiatric: Denies anxiety Hematologic/Lymphatic Hematologic/Lymphatic: Denies easy bleeding or easy bruising EXAM Physical Exam Const Vital Signs: 04/03/24 13:12 04/03/24 14:00 04/03/24 14:24 Temperature 97.9 F Temperature Source Temporal Pulse Rate 97 84 Respiratory Rate 25 H 11 L Blood Pressure 141/85 H 130/72 H Blood Pressure Mean 103 87 Pulse Ox 97 93 Oxygen Delivery Method Room Air Room Air 04/03/24 15:00 04/03/24 16:00 04/03/24 17:00 Temperature Temperature Source Pulse Rate 85 79 80 Respiratory Rate 16 14 13 Blood Pressure 146/64 H 136/67 H 145/70 H Blood Pressure Mean 86 86 92 Pulse Ox Oxygen Delivery Method Positive well nourished and well developed General Appearance ED: well developed and NAD HEENT Reports moist mucous membranes normocephalic and atraumatic Neck supple Chest Wall inspection of chest normal Chest Narrative: No chest wall crepitus. Tenderness palpation of the left lateral ribs at the mid axillary line proximately ribs 4 and 5. Resp normal respiratory effort and clear to auscultation bilaterally Cardio regular rate and regular rhythm Peripheral Pulses: radial pulses present bilateral 2+ GI normal to inspection, nondistended, normoactive bowel sounds and soft to palpation Back/Spine no CVA tenderness Extremity Extremity Narrative: No deformity. Decreased range of motion of the left shoulder secondary to pain that radiates to the left chest. No pinpoint tenderness palpation. Neuro oriented x3 and no sensory deficits noted Sensorium / Orientation: awake and alert Motor Exam: strength 5/5 throughout; Negative for general weakness Psych mental status grossly normal Skin no rashes or lesions noted Skin Narrative: Healing ecchymosis to the left humerus midshaft MDM MDM MDM Narrative Medical decision making narrative: Patient evaluated for 3 days of worsening left-sided chest wall pain. Denies any infectious symptoms such as fever or chills. Did have 2 falls last week but it became became particularly severe today which is a prior to the emergency room. Did not take any for pain prior to arrival. Differential includes rib fracture, rib contusion, AC joint separation, rotator cuff injury, shingles (lower suspicion given it has been 3 days I do not appreciate any rash), pneumothorax and pneumonia. Lower suspicion for septic joint as she does not have any fever, localized pain to the joint itself, effusion or overlying redness. Pain is highly reproducible with movements and her O2 saturation is 97% upon arrival. She is not tachycardic. I do not suspect this is a PE and do not think she needs workup for pulmonary emboli. Patient has protocol labs including CBC, BMP and high-sensitivity troponin. Will obtain CT of the chest without contrast to evaluate for any type of traumatic injury or pneumothorax. Protocol chest x-ray viewed by myself as well as radiology did not show any acute process. Patient initially given 6 mg IV morphine with some pain control and she states it took the edge off. She continues to have a lot of pain but her range of motion of her shoulder/ chest wall. Will be redosed with morphine and also given Toradol and a Lidoderm patch. CT chest pending at this time. CT of the chest does not show any acute process. Patient reevaluated and is feeling improved but pain is still there. Suspect this is more of a muscular pain. Her range of motion her shoulder is normal and her pain seems to refer down to her chest wall/ribs when she does try to move. Will be discharged home with instructions to take [id number] Lidoderm patches, given a short course of [place] for further pain control and incentive spirometer. Also instructed to take NSAIDs. Discharged home in stable condition. Of note patient does have a planned lithotripsy with Dr. Barbosa tomorrow. I do not feel that her symptoms today are a contraindication for her procedure tomorrow but she should inform her surgeon of her chest wall pain and prescription for pain medicine. Lab Data Attestation: I reviewed the patient's lab results. Labs: Laboratory Results - last 24 hr 04/03/24 04/03/24 13:48 16:21 WBC 7.8 RBC 4.69 Hgb 14.4 Hct 42.9 MCV 91.5 MCH 30.7 MCHC 33.6 RDW Std Deviation 44.0 H RDW Coeff of [place] 13.2 Plt Count 194 MPV 9.6 Immature Gran % (Auto) 1.400 H Neut % (Auto) 71.8 H Lymph % (Auto) 18.4 L [place] % (Auto) 6.5 Eos % (Auto) 1.4 Baso % (Auto) 0.5 Absolute Neuts (auto) 5.6 Absolute Lymphs (auto) 1.44 Nucleated RBC % 0 Sodium 138 Potassium 3.8 Chloride 105 Carbon Dioxide 26.0 Anion Gap 8 BUN 21 H Creatinine 0.98 Estim Creat Clear Calc 81.92 Est GFR (MDRD) Af Amer 74 Est GFR (MDRD) Non-Af 61 BUN/Creatinine Ratio 21.3 H Glucose 126 H Calcium 9.4 Troponin I High Sens 3 4 Radiography Diagnostic Testing: Clinical Impression(s) from Imaging Studies Chest X-Ray 04/03/24 13:40 IMPRESSION: No acute cardiopulmonary process. Reading Location: [facility] Chest CT 04/03/24 15:04 IMPRESSION: No acute chest abnormalities. One or more dose reduction techniques were used (e.g., Automated exposure control, adjustment of the mA and/or kV according to patient size, use of iterative reconstruction technique). Reading Location: [id number] Discharge Plan Triage Chief Complaint: Chest Pain ED Provider: Aure Power Dx/Rx/DC Orders Clinical Impression: Rib pain on left side Instructions: ED Chest Pain, Noncardiac, ED Chest Wall Strain Prescriptions: New hydrocodone-acetaminophen 5-325 mg tablet 1 tab PO Q6H PRN PRN (Reason: Pain) 3 Days Qty: 12 0RF No Action amitriptyline 25 mg tablet 25 mg PO QHS clobetasol 0.05 % cream 1 applic TOPICAL PRN PRN (Reason: geovani-area) levalbuterol tartrate [Xopenex HFA] 45 mcg/actuation HFA aerosol inhaler 2 puff inhalation Q4-6H PRN (Reason: shortness of breath or wheezing) omeprazole 40 mg capsule,delayed release(DR/EC) 40 mg PO DAILY mecobalamin (vitamin B12) [B12 Active] 1,000 mcg tablet,chewable 1,000 mcg PO DAILY alpha lipoic acid 600 mg capsule 600 mg PO DAILY milk thistle 175 mg tablet 175 mg PO BID Rx Instructions: give with meal/snack cinnamon bark 500 mg capsule 1,000 mg PO DAILY aspirin 81 MG tablet 81 mg PO DAILY@0800 montelukast 10 MG tablet 10 mg PO QHS calcium citrate 200 MG tablet 630 mg PO DAILY losartan-hydrochlorothiazide 1 TAB tablet 1 tab PO DAILY cholecalciferol (vitamin D3) 1,000 UNIT tablet 1,000 unit PO DAILY coenzyme [id number] 1 EACH capsule 1 ea PO DAILY ascorbic acid (vitamin C) 500 mg tablet 500 mg PO BIDCM acetaminophen [Tylenol] 325 mg Tablet 650 mg PO Q4H PRN PRN (Reason: P/F) Qty: 0 0RF Zyrtec 10 mg capsule 10 mg PO DAILY bupropion HCl 150 mg tablet extended release 24 hr 150 mg PO DAILY Breztri Aerosphere 160-9-4.8 mcg/actuation HFA aerosol inhaler 2 inh INHALATION BID Primary Care Provider: Lester Corey Referrals: Lester Corey MD [Primary Care Provider] - Activity Restrictions/Additional Instructions: You may also take ibuprofen for pain. Please let your urologist know tomorrow that you were seen in the ER for this and prescribed pain medication. Please use incentive spirometer throughout the day and when resting to help prevent associated pneumonia. If your symptoms worsen, you develop a fever or all of a sudden have a hard time breathing please return to the emergency room. Print Language: [place] Disposition Disposition: Home, Self Care
[2024-04-03] MEDS: Ketorolac 15 MG/ML Vial IV (16:48)
[2024-04-03] MEDS: Lidocaine 5% Patch 1 PATCH TOPICAL (16:48)
[2024-04-03 16:57] LABS: Troponin-I HS 4 pg/mL (3.0-54.0)
[2024-04-03 17:00] VITALS: BP 145/70; PULSE 80; RESP 13
[2024-04-03 17:59] VITALS: BP 138/52; PULSE 78; RESP 16; O2SAT 94
== END 2024-04-03 18:01 | disposition home or self-care (01) ==
PROVIDERS: Emergency Provider Emergency Medicine; PCP Family Medicine; Visit Provider Emergency Medicine
DX: R07.89 Other chest pain (principal); J45.909 Unspecified asthma, uncomplicated; M79.622 Pain in left upper arm; M25.512 Pain in left shoulder; I10 Essential (primary) hypertension; E78.00 Pure hypercholesterolemia, unspecified; W06.XXXA Fall from bed, initial encounter; K21.9 Gastro-esophageal reflux disease without esophagitis
CPT/HCPCS: 71045; 71250; 80048; 84484; 85025; 93005; 96374; 96375; 96376; 99283; A4216

== ENCOUNTER 2024-04-04 11:39 | Day surgery (SDC) | payer OTHER, SELFPAY ==
[2024-03-30 11:35] LABS: Hematocrit 41.4 % (37-47); Hemoglobin 14.1 g/dL (12.0-15.0); Mean Corp Hgb Conc 34.1 g/dL (32-36); Mean Corpuscular Hgb 30.5 pg (27.0-32.0); Mean Corpuscular Volume 89.4 fL (81-99); Mean Platelet Vol. 8.6 fl (6.2-12.0); Platelet Count 171 K/mm3 (150-450); RBC Distribution Width CV 13.1 % (11.6-14.6); RBC Distribution Width SD 42.6 fl (35.1-43.9); Red Blood Count 4.63 M/mm3 (4.2-5.4); White Blood Count 5.7 K/mm3 (4.4-11.0)
[2024-03-30 11:48] LABS: Anion Gap 3 (5-15); BUN 16 mg/dL (7-18); BUN/Creat Ratio 15.4 RATIO (10-20); Calcium,Total 8.7 mg/dL (8.5-10.1); Chloride 104 mmol/L (98-107); Creatinine, Serum 1.04 mg/dL (0.55-1.02); EST Glomerular Filtration Rate 57 mL/min (>60); Est Glom Filt Rate - Afr Amer 69 mL/min (>60); Glucose 107 mg/dL (74-106); Sodium Level 139 mmol/L (136-145)
[2024-04-04 12:01] VITALS: BP 129/73; PULSE 80; RESP 17; TEMP 36.6; O2SAT 94; BMI 40.8
[2024-04-04] MEDS: 0.9% Normal Saline (1000mL) 1,000 ML 15 ML IV (12:11)
--- NOTE | 2024-04-04 12:37 | PCM.PRE.AN2 ---
ASA Classification* ASA Classification ASA Classification: 3 Assessment & Plan Anesthesia* Anesthesia Assessment Anesthesia Assessment: Discussed sedation and/or anesthesia options, risks, benefits, and alternatives with patient/parents/legal guardian/POA. Questions invited. The patient/parents/legal guardian/POA seems to understand and agrees to proceed with anesthesia plan. Reviewed the physical assessment, medical history, allergy history and patient home medications list prior to surgery/procedure/anesthetic and documented any changes. Performed airway and anesthesia risk assessments. Anesthesia Type Anesthesia Type: General History Source History Obtained from:: Patient and Chart Anesthesia Focused Assessment* Temperature: 97.8 F Pulse Rate: 80 Blood Pressure: 129/73 Respiratory Rate: 17 Pulse Ox: 94 Oxygen Delivery Method: Room Air Airway Assessment Mouth opens: >3 cm Mallampati Score: I Teeth Condition: Caps/Crowns (Patient has a #9. It Is Tight) Neck Range of motion (ROM): Limited ROM (Somewhat decreased extension secondary to left sided chest and back pain. Workup in the ER was negative. Sharp pain is believed to be musculoskeletal) Focused Labs Anesthesia Preop lab: CBC WBC 7.8 K/mm3 (4.4-11.0) 04/03/24 13:48 04/03/24 RBC 4.69 M/mm3 (4.2-5.4) 04/03/24 13:48 04/03/24 Hgb 14.4 g/dL (12.0-15.0) 04/03/24 13:48 04/03/24 Hct 42.9 % (37-47) 04/03/24 13:48 04/03/24 Plt Count 194 K/mm3 (150-450) 04/03/24 13:48 04/03/24 CHEMISTRY Potassium 3.8 mmol/L (3.5-5.1) 04/03/24 13:48 04/03/24 Sodium 138 mmol/L (136-145) 04/03/24 13:48 04/03/24 Magnesium 2.2 mg/dL (1.8-2.4) 09/09/15 11:25 09/09/15 Phosphorus 3.0 mg/dL (2.5-4.9) 07/13/12 12:12 07/13/12 BUN 21 mg/dL (7-18) H 04/03/24 13:48 04/03/24 Creatinine 0.98 mg/dL (0.55-1.02) 04/03/24 13:48 04/03/24 Glucose 126 mg/dL (74-106) H 04/03/24 13:48 04/03/24 TSH 1.27 uIU/mL (0.358-3.74) 06/05/23 10:57 06/05/23 COAG Pre-Assessment Diagnosis/Proposed Procedure Planned Operative Procedure(s): RIGHT ESWL Anesthesia History Anesthesia History - soft sugar cutter: Anesthesia History - soft sugar cutter Hx Hospitalization No 03/28/24 10:42 Any Problems With Anesthesia No 03/28/24 10:42 Cholinesterase deficiency No 03/28/24 10:42 You/Your Family Experience No 03/28/24 10:42 fever (hyperthermia) with Relationship Recent Exposure to Contagious No 04/04/24 12:01 Disease Does patient have nerve No 03/28/24 10:42 stimulator Patient instructed to have device shut off --Does patient have Pacemaker No 04/04/24 12:01 or ICD? When Was Last Pacemaker Check QUESTION #4 FULL TEXT: You/Your Family Experience fever (hyperthermia) with Anesthesia Last Oral Intake Last Oral intake: Last Oral Intake NPO since :30 04/04/24 12:01 Meds taken in AM with sips of Yes 04/04/24 12:01 water? Meds patient instructed to take am of surgery Any additional information?: Yes Meds taken in AM with sips of water?: Yes PONV PONV - soft sugar cutter: PONV - soft sugar cutter Female Yes 03/28/24 10:42 HX of Motion Sickness Yes 03/28/24 10:42 HX of N/V After Surgery No 03/28/24 10:42 Non-Smoker Yes 03/28/24 10:42 Duration of Surgery greater Yes 03/28/24 10:42 than 60 minutes Number of Risk Factors 4 03/28/24 10:42 PONV Score Severe Risk 03/28/24 10:42 Height & Weight Height & Weight: Anesthesia: Height & Weight Height 5 ft 8 in 04/04/24 12:01 Weight: 122 kg 04/04/24 12:01 Body Mass Index (BMI) 40.8 04/04/24 12:01 Respiratory Assessment Respiratory Assessment - soft sugar cutter: Respiratory Tract Infection Hx - soft sugar cutter Hx Respiratory Tract Infection No 03/28/24 10:42 STOP Sleep Apnea STOP Sleep Apnea - soft sugar cutter: STOP Sleep Apnea - soft sugar cutter Hx Hypertension Yes: CONTROLLED WITH MED 03/28/24 10:42 Hx Sleep Apnea Yes 03/28/24 10:42 CPAP Yes 03/28/24 10:42 BIPAP No 03/28/24 10:42 Do you snore loudly (louder than talking or can be heard Do you often feel tired/ fatigued/ sleepy during daytime? Has anyone observed you stop breathing during sleep? STOP Results Positive 03/28/24 10:42 QUESTION #5 FULL TEXT : Do you snore loudly (louder than talking or can be heard through closed doors)? 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 Specify any problems Hx of Preganancy in last 3 No 03/28/24 10:42 Months Nurse Filling Out Transfusion DSCHRIBER 03/28/24 10:42 & Questions: Date: 03/28/24 03/28/24 10:42 Time: 10:43 03/28/24 10:42 Patient unable to answer at this time (ie. confused, unrespo /Reproduction History /Reproductive History - soft sugar cutter: /Reproductive Hx- soft sugar cutter Hx Now No 03/28/24 10:42 Gestational Age (in weeks): EDC: Hx Hx Para Hx Section SAB No 03/28/24 10:42 Active Medications Active Medications: Current Medications Generic Name Dose Route Start Last Admin Trade Name Freq PRN Reason Stop Dose Admin Cefazolin Sodium 2 gm/ N/A 20 mls @ 400 mls/hr 04/04/24 13:25 IV 04/04/24 13:27 PREOP ONE Sodium Chloride 1,000 mls @ 15 mls/hr 04/04/24 11:50 04/04/24 12:11 IV 04/10/24 01:09 15 mls/hr .Q48H MARINO Administration Protocol [facility] Medical History Wears glasses History of steroid therapy Arthritis Fatty liver Back pain Spinal stenosis in cervical region History of diverticulitis Gastric reflux Chronic cough Shortness of breath on exertion History of pain when walking History of edema History of echocardiogram History of irregular heartbeat Post-menopausal Injury of head and neck CPAP (continuous positive airway pressure) dependence High cholesterol History of stress test Acute cholecystitis Hemorrhoids Depression Nipple discharge Duct ectasia of breast Bilateral breast cysts Renal calculi Asthma MTHFR (methylene THF reductase) deficiency and homocystinuria HTN (hypertension) Sleep apnea Small fiber neuropathy Home Medications ?Medication ?Instructions ?Recorded ?Last Taken ?Type aspirin 81 mg tablet,delayed 81 mg PO DAILY@0800 [facility] 01/27/16 04/03/24 History release calcium citrate 630 mg PO DAILY supplement 01/27/16 04/03/24 History cholecalciferol (vitamin D3) 25 1,000 unit PO DAILY supplement 01/27/16 04/03/24 History mcg (1,000 unit) tablet coenzyme Q10 200 mg-vitamin E 20 1 ea PO DAILY supplement 01/27/16 04/03/24 History unit capsule losartan 100 1 tab PO DAILY BP 01/27/16 04/04/24 History mg-hydrochlorothiazide 12.5 mg tablet montelukast 10 mg tablet 10 mg PO QHS asthma 01/27/16 04/03/24 History amitriptyline 25 mg tablet 25 mg PO QHS nerve pain 05/15/20 04/03/24 History acetaminophen 325 mg tablet 650 mg (2 x 325 mg) PO Q4H PRN PRN 06/02/21 Unknown Rx (Tylenol) P/F #0 tabs alpha lipoic acid 600 mg capsule 600 mg PO DAILY 03/08/23 04/03/24 History ascorbic acid (vitamin C) 500 mg 500 mg PO BIDCM supplement 03/08/23 04/03/24 History tablet cinnamon bark 500 mg capsule 1,000 mg PO DAILY 03/08/23 Unknown History levalbuterol tartrate 45 2 puff inhalation Q4-6H PRN 03/08/23 04/03/24 History mcg/actuation aerosol inhaler shortness of breath or wheezing (Xopenex HFA) mecobalamin (vitamin B12) 1,000 1,000 mcg PO DAILY 03/08/23 04/03/24 History mcg chewable tablet (B12 Active) milk thistle 175 mg tablet 175 mg PO BID 03/08/23 04/03/24 History omeprazole 40 mg capsule,delayed 40 mg PO DAILY 03/08/23 04/04/24 History release budesonide 160 mcg-glycopyr 9 2 inh inhalation BID 03/28/24 04/04/24 History mcg-formot 4.8 mcg/actuation HFA inhaler (Breztri Aerosphere) bupropion HCl 150 mg 24 hr tablet, 150 mg PO DAILY 03/28/24 04/03/24 History extended release cetirizine 10 mg capsule (Zyrtec) 10 mg PO DAILY 03/28/24 04/03/24 History hydrocodone-acetaminophen 5-325mg 1 tab PO Q6H PRN PRN Pain 3 days 04/03/24 Unknown Rx 5mg-325mg #12 TABLETS cephalexin 500 mg capsule 500 mg PO TID 04/04/24 04/03/24 History Allergy/AdvReac Type Severity Reaction Status Date / Time Seasonal Allergies: Uncoded Allergy Mild Other Verified 04/04/24 11:57 Sulfa (Sulfonamide Allergy Hives Verified 04/04/24 11:57 Antibiotics) JELANI Inhibitors AdvReac COUGH Verified 04/04/24 11:57 Family History Father Hypertension Mother Hypertension Aunt Breast cancer Aunt Breast cancer Surgical History Hx of colonoscopy Hx laparoscopic cholecystectomy History of hysterectomy History of fusion of cervical spine Social History Smoking Status: Never smoker Review of Systems (Anesthesia) ROS Narrative System reviewed and no additional complaints, except as documented. Physical Exam Resp clear to auscultation bilaterally
[2024-04-04 12:49] VITALS: BP 129/73; PULSE 80; RESP 17; TEMP 36.6; O2SAT 94
[2024-04-04] MEDS: Cefazolin 2 GM in Syringe IV (13:51)
--- NOTE | 2024-04-04 14:18 | EX.PCM.DISCH ---
Discharge Instructions Diet Discharge Diet: No restrictions Activity Discharge Activity: Return to Normal Activity Dressing / Incision Call your doctor if you observe: Fever of 101 or Higher, Inability to urinate and Inability to have a bowel movement Follow Up Care Please Follow Up With: Yessy Barbosa MD When: In the office in 2 to 3 weeks with a KUB Test Results: Test results from this visit will be discussed in further detail at your follow-up appointment, if applicable. Discharge Plan Admission Attending Provider: Yessy Barbosa Primary Care Provider: Lester Corey Instructions Print Language: Lebanese Discharge Orders/Prescriptions Prescriptions: New phenazopyridine 200 mg tablet 200 mg PO TID PRN (Reason: pain) Qty: 30 3RF Continued amitriptyline 25 mg tablet 25 mg PO QHS levalbuterol tartrate [Xopenex HFA] 45 mcg/actuation HFA aerosol inhaler 2 puff inhalation Q4-6H PRN (Reason: shortness of breath or wheezing) omeprazole 40 mg capsule,delayed release(DR/EC) 40 mg PO DAILY mecobalamin (vitamin B12) [B12 Active] 1,000 mcg tablet,chewable 1,000 mcg PO DAILY alpha lipoic acid 600 mg capsule 600 mg PO DAILY milk thistle 175 mg tablet 175 mg PO BID Rx Instructions: give with meal/snack cinnamon bark 500 mg capsule 1,000 mg PO DAILY aspirin 81 MG tablet 81 mg PO DAILY@0800 montelukast 10 MG tablet 10 mg PO QHS calcium citrate 200 MG tablet 630 mg PO DAILY losartan-hydrochlorothiazide 1 TAB tablet 1 tab PO DAILY cholecalciferol (vitamin D3) 1,000 UNIT tablet 1,000 unit PO DAILY coenzyme [id number] 1 EACH capsule 1 ea PO DAILY ascorbic acid (vitamin C) 500 mg tablet 500 mg PO BIDCM acetaminophen [Tylenol] 325 mg Tablet 650 mg PO Q4H PRN PRN (Reason: P/F) Qty: 0 0RF Zyrtec 10 mg capsule 10 mg PO DAILY bupropion HCl 150 mg tablet extended release 24 hr 150 mg PO DAILY Breztri Aerosphere 160-9-4.8 mcg/actuation HFA aerosol inhaler 2 inh INHALATION BID cephalexin 500 mg capsule 500 mg PO TID hydrocodone-acetaminophen 5-325 mg tablet 1 tab PO Q6H PRN PRN (Reason: Pain) 3 Days Qty: 12 0RF Referrals / Follow Up: Lester Corey MD [Primary Care Provider] - Disposition Disposition (needs filled in before D/C Order can be placed): Home, Self Care
--- NOTE | 2024-04-04 14:21 | PCM.OPRPT ---
Operative Report (Standard) Operative Information Date of Procedure: 04/04/24 Pre-Operative Diagnosis: Right renal pelvic stone Post-Operative Diagnosis: Same Surgery/Procedure Performed: Cystoscopy with right ureteral stent insertion, right renal extracorporal shockwave lithotripsy revenue agent: Yes Catalytic Converter Operator Helper: Maribel Fry Tasks completed by sales operations assistant: Other (Stent insertion) Additional commercial lending assistant?: No Type of Anesthesia: General RN Documented Start/Stop Times: Operation Date: 04/04/24 13:20 Case Time Into Pre-Op 04/04/24 11:48 Out of Pre-Op 04/04/24 13:48 Anesthesia Start 04/04/24 13:51 Into Room 04/04/24 13:51 Procedure Start 04/04/24 14:10 Procedure Start Time: 14:10 Procedure Stop Time: 14:48 Select all DRAINS/GRAFTS/IMPLANTS that apply: Drains Drain details: 6 Kenyan by 28 cm JJ stent Estimated Blood Loss: <5cc Specimen collected: No Description of surgery: The patient is a 59-year-old female with a right renal pelvic stone who presents for surgical intervention. Informed consent was obtained. She was taken the operating room and placed on the operating room table. Anesthesia monitored the head, neck, airway, IV access and vital signs throughout the case. Once anesthesia was appropriate ministered she was placed into dorsolithotomy position was prepped and draped in usual sterile fashion. The cystoscope was inserted through the urethra under direct visualization into the urinary bladder. The bladder mucosa was visualized in its entirety finding no evidence of mass, erythema, ulceration or foreign body. The right ureteral orifice was then gently cannulated with a 0.035 Glidewire which easily advanced into the renal pelvis is seen on fluoroscopy. A 6 Kenyan 28 cm stent was placed over the wire with good positioning in the renal pelvis as well as the urinary bladder. Her bladder was then emptied and the cystoscope was removed. She was repositioned on the table. Her stone was easily visualized. 3000 shocks were applied to the stone which appeared to be well fragmented at the conclusion of the case. She was then awakened and taken to the recovery room in good condition. There were no complications during the procedure. Surgical Findings: 6 Kenyan by 28 cm JJ stent Complications Complications: No Admit VTE Documentation VTE Present on Admission: Yes VTE Mechan Device Prophylaxis: SCD's VTE Pharm Prophylaxis ordered?: No Reason prophylaxis not ordered: Treatment Not Indicated
--- NOTE | 2024-04-04 14:59 | PCM.POST.ANE ---
Anesthesia: Postop Eval I Current Vital Signs Temperature: 97.7 F Pulse Rate: 87 Blood Pressure: 139/70 Respiratory Rate: 16 Pulse Ox: 96 Oxygen Delivery Method: Room Air Assessment Airway patent: Yes Spontaneous unlabored respirations: Yes Mental status: Awake and Calm nausea: No Vomiting: No Anesthesia Complication: No Fluid Hydration Crystalloid volume administer (ml): 400 Total IV fluid infused: 400 Progress Note Anesthesia document: Postop Eval 1 completed: Yes
[2024-04-04 15:00] VITALS: BP 129/73; BP 135/73; BP 139/70; PULSE 86; PULSE 87; PULSE 88; RESP 16; TEMP 36.5; O2SAT 96
[2024-04-04 15:05] VITALS: BP 129/73; BP 139/74; PULSE 85; RESP 16; O2SAT 98
[2024-04-04 15:17] VITALS: BP 129/73; BP 145/74; PULSE 82; RESP 16; TEMP 36.5; O2SAT 98
[2024-04-04 15:43] VITALS: BP 129/73
--- NOTE | 2024-04-04 15:46 | POSTOPAN2_ITS ---
Anesthesia Postop Eval I Sum Postop Eval Completion status Anesthesia document: Postop Eval 1 completed: Yes Anesthesia Postop Eval I Summary Anesthesia Postop Eval I Summary: Anesthesia Postop Eval I: Assessment Summary Airway patent Yes 04/04/24 15:00 JOINTER MACHINE.[email or web address] Spontaneous unlabored Yes 04/04/24 15:00 JOINTER MACHINE.GDOTT respirations Mental status Awake,Calm 04/04/24 15:00 JOINTER MACHINE.GDOTT nausea No 04/04/24 15:00 JOINTER MACHINE.GDOTT Vomiting No 04/04/24 15:00 JOINTER MACHINE.GDOTT Anesthesia Postop Eval I: Fluid Summary Crystalloid volume administer 400 04/04/24 15:00 JOINTER MACHINE.GDOTT (ml) Colloids volume administered ( ml) Blood Product volume administered (ml) Total IV fluid infused 400 04/04/24 15:00 JOINTER MACHINE.GDOTT Anesthesia Postop Eval I: Summary Notes Anesthesia Complication No 04/04/24 15:00 JOINTER MACHINE.GDOTT Anesthesia Complication Comment: Post-operative progress note Anesthesia: Postop Eval II Evaluation Mental status: Awake and Calm Pain Level: 1 nausea: No Vomiting: No Complications Anesthesia Complication: No
--- NOTE | 2024-04-04 15:46 | PCM.POSTANE2 ---
Anesthesia Postop Eval I Sum Postop Eval Completion status Anesthesia document: Postop Eval 1 completed: Yes Anesthesia Postop Eval I Summary Anesthesia Postop Eval I Summary: Anesthesia Postop Eval I: Assessment Summary Airway patent Yes 04/04/24 15:00 AUDIOLOGY DIRECTOR.GDOTT Spontaneous unlabored Yes 04/04/24 15:00 AUDIOLOGY DIRECTOR.GDOTT respirations Mental status Awake,Calm 04/04/24 15:00 AUDIOLOGY DIRECTOR.GDOTT nausea No 04/04/24 15:00 AUDIOLOGY DIRECTOR.GDOTT Vomiting No 04/04/24 15:00 AUDIOLOGY DIRECTOR.GDOTT Anesthesia Postop Eval I: Fluid Summary Crystalloid volume administer 400 04/04/24 15:00 AUDIOLOGY DIRECTOR.GDOTT (ml) Colloids volume administered ( ml) Blood Product volume administered (ml) Total IV fluid infused 400 04/04/24 15:00 AUDIOLOGY DIRECTOR.GDOTT Anesthesia Postop Eval I: Summary Notes Anesthesia Complication No 04/04/24 15:00 AUDIOLOGY DIRECTOR.GDOTT Anesthesia Complication Comment: Post-operative progress note Anesthesia: Postop Eval II Evaluation Mental status: Awake and Calm Pain Level: 1 nausea: No Vomiting: No Complications Anesthesia Complication: No
== END 2024-04-04 15:56 | disposition home or self-care (01) ==
LOC: SDC 11:39 → AC 11:41
PROVIDERS: PCP Family Medicine; Referring Provider Urology; Visit Provider Urology
PROC: (CPT 50590; principal; 2024-04-04 13:10)
DX: N20.0 Calculus of kidney (principal); J45.909 Unspecified asthma, uncomplicated; I10 Essential (primary) hypertension; R31.0 Gross hematuria; K21.9 Gastro-esophageal reflux disease without esophagitis; E78.00 Pure hypercholesterolemia, unspecified; Z79.82 Long term (current) use of aspirin; Z79.899 Other long term (current) drug therapy
CPT/HCPCS: 50590; 52332; 00873; 36415; 80048; 85027; J2405

== ENCOUNTER → 2024-04-23 | Outpatient (CLI) | payer OTHER, SELFPAY ==
--- NOTE | 2024-04-23 14:11 | RAD_ITS ---
PROCEDURE: ABDOMEN SINGLE VIEW REASON FOR EXAM: KUB. Stones. TECHNIQUE: Single view abdomen. COMPARISON: CT of the abdomen and pelvis on March 15, 2024. FINDINGS: Right-sided double-J ureteral stent is noted, with the proximal loop in the region of the renal pelvis and the distal loop in the region of the urinary bladder. No suspicious calcifications. The stone seen on the prior study, in the renal pelvis, is not definitely seen on today's study. No new stone is identified. Phleboliths are seen in the pelvis. The bowel gas pattern is nonobstructive. Mild degenerative changes in the lumbar spine. RAD/Abdomen Single View IMPRESSION: RIGHT DOUBLE-J URETERAL STENT IN PLACE. THE KNOWN CALCULUS IN THE RIGHT RENAL PELVIS IS NOT SEEN ON TODAY'S STUDY. Reading Location: [id number]
== END | disposition home or self-care (01) ==
LOC: MTRAD 14:10
PROVIDERS: PCP Family Medicine; Referring Provider Urology; Visit Provider Urology
DX: N20.0 Calculus of kidney (principal)
CPT/HCPCS: 74018

== ENCOUNTER → 2024-06-04 | Outpatient (CLI) | payer OTHER, SELFPAY ==
[2024-06-04 18:39] LABS: Creatinine, Serum 1.03 mg/dL (0.70-1.20); EST Glomerular Filtration Rate 62 (>60)
== END | disposition home or self-care (01) ==
LOC: MTLAB 16:30
PROVIDERS: PCP Family Medicine; Referring Provider Urology; Visit Provider Urology
DX: R82.994 Hypercalciuria (principal)
CPT/HCPCS: 36415; 82565

== ENCOUNTER → 2024-06-12 | Outpatient (CLI) | payer OTHER, SELFPAY ==
[2024-06-12 18:17] LABS: Calcium 9.3 mg/dL (7.6-11.0)
== END | disposition home or self-care (01) ==
LOC: MTLAB 16:16
PROVIDERS: PCP Family Medicine; Referring Provider Urology; Visit Provider Urology
DX: R82.994 Hypercalciuria (principal)
CPT/HCPCS: 36415; 82310

== ENCOUNTER 2024-08-26 07:19 | Day surgery (SDC) | payer OTHER, SELFPAY ==
[2024-08-26] VITALS (8 sets, daily range): BP systolic 102–129; BP diastolic 66–87; PULSE 77–87; RESP 14–16; TEMP 36.6–36.9; O2SAT 95–100; BMI 41.1
[2024-08-26] MEDS: Lactated Ringers 1,000 ML 15 ML IV (07:56)
--- NOTE | 2024-08-26 08:21 | PCM.PRE.AN2 ---
ASA Classification* ASA Classification ASA Classification: 3 Assessment & Plan Anesthesia* Anesthesia Assessment Anesthesia Assessment: Discussed sedation and/or anesthesia options, risks, benefits, and alternatives with patient/parents/legal guardian/POA. Questions invited. The patient/parents/legal guardian/POA seems to understand and agrees to proceed with anesthesia plan. Reviewed the physical assessment, medical history, allergy history and patient home medications list prior to surgery/procedure/anesthetic and documented any changes. Performed airway and anesthesia risk assessments. Anesthesia Type Anesthesia Type: MAC History Source History Obtained from:: Patient and Chart Anesthesia Focused Assessment* Temperature: 98.5 F Pulse Rate: 87 Blood Pressure: 129/69 Respiratory Rate: 14 Pulse Ox: 95 Oxygen Delivery Method: Room Air Airway Assessment Mouth opens: >3 cm Mallampati Score: III Teeth Condition: Caps/Crowns (Tooth #9 is capped.) Neck Range of motion (ROM): Limited ROM Labs Anesthesia Preop lab: CBC WBC 7.8 K/mm3 (4.4-11.0) 04/03/24 13:48 04/03/24 RBC 4.69 M/mm3 (4.2-5.4) 04/03/24 13:48 04/03/24 Hgb 14.4 g/dL (12.0-15.0) 04/03/24 13:48 04/03/24 Hct 42.9 % (37-47) 04/03/24 13:48 04/03/24 Plt Count 194 K/mm3 (150-450) 04/03/24 13:48 04/03/24 CHEMISTRY Potassium 3.8 mmol/L (3.5-5.1) 04/03/24 13:48 04/03/24 Sodium 138 mmol/L (136-145) 04/03/24 13:48 04/03/24 Magnesium 2.2 mg/dL (1.8-2.4) 09/09/15 11:25 09/09/15 Phosphorus 3.0 mg/dL (2.5-4.9) 07/13/12 12:12 07/13/12 BUN 21 mg/dL (7-18) H 04/03/24 13:48 04/03/24 Creatinine 1.03 mg/dL (0.70-1.20) 06/04/24 16:32 06/04/24 Glucose 126 mg/dL (74-106) H 04/03/24 13:48 04/03/24 TSH 1.27 uIU/mL (0.358-3.74) 06/05/23 10:57 06/05/23 COAG Pre-Assessment Diagnosis/Proposed Procedure Planned Operative Procedure(s): CSCOPE OA Anesthesia History Anesthesia History - adult secondary education instructor: Anesthesia History - adult secondary education instructor Hx Hospitalization No 08/22/24 11:01 Any Problems With Anesthesia No 08/22/24 11:01 Cholinesterase deficiency No 08/22/24 11:01 You/Your Family Experience No 08/22/24 11:01 fever (hyperthermia) with Relationship Recent Exposure to Contagious No 08/26/24 07:40 Disease Does patient have nerve No 08/22/24 11:01 stimulator Patient instructed to have device shut off --Does patient have Pacemaker No 08/26/24 07:40 or ICD? When Was Last Pacemaker Check QUESTION #4 FULL TEXT: You/Your Family Experience fever (hyperthermia) with Anesthesia Last Oral Intake Last Oral intake: Last Oral Intake NPO since 22:30 08/26/24 07:40 Meds taken in AM with sips of No 08/26/24 07:40 water? Meds patient instructed to take am of surgery PONV PONV - adult secondary education instructor: PONV - adult secondary education instructor Female Yes 08/22/24 11:01 HX of Motion Sickness Yes 08/22/24 11:01 HX of N/V After Surgery No 08/22/24 11:01 Non-Smoker Yes 08/22/24 11:01 Duration of Surgery greater No 08/22/24 11:01 than 60 minutes Number of Risk Factors 3 08/22/24 11:01 PONV Score Moderate Risk 08/22/24 11:01 Height & Weight Height & Weight: Anesthesia: Height & Weight Height 5 ft 7 in 08/26/24 07:40 Weight: 119 kg 08/26/24 07:40 Body Mass Index (BMI) 41.1 08/26/24 07:40 Respiratory Assessment Respiratory Assessment - adult secondary education instructor: Respiratory Tract Infection Hx - adult secondary education instructor Hx Respiratory Tract Infection No 08/22/24 11:01 STOP Sleep Apnea STOP Sleep Apnea - adult secondary education instructor: STOP Sleep Apnea - adult secondary education instructor Hx Hypertension Yes: CONTROLLED WITH MED 08/22/24 11:01 Hx Sleep Apnea Yes 08/22/24 11:01 CPAP Yes 08/22/24 11:01 BIPAP No 08/22/24 11:01 Do you snore loudly (louder than talking or can be heard Do you often feel tired/ fatigued/ sleepy during daytime? Has anyone observed you stop breathing during sleep? STOP Results Positive 08/22/24 11:01 QUESTION #5 FULL TEXT : Do you snore loudly (louder than talking or can be heard through closed doors)? 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 Specify any problems Hx of Preganancy in last 3 No 08/22/24 11:01 Months Nurse Filling Out Transfusion DSCHRIBER 08/22/24 11:01 & Questions: Date: 08/22/24 08/22/24 11:01 Time: 11:02 08/22/24 11:01 Patient unable to answer at this time (ie. confused, unrespo /Reproduction History /Reproductive History - adult secondary education instructor: /Reproductive Hx- adult secondary education instructor Hx Now No 08/22/24 11:01 Gestational Age (in weeks): EDC: Hx Hx Para Hx Section SAB No 08/22/24 11:01 Active Medications Active Medications: Current Medications Generic Name Dose Route Start Last Admin Trade Name Freq PRN Reason Stop Dose Admin Lactated Ringer's 1,000 mls @ 15 mls/hr 08/26/24 07:30 08/26/24 07:56 IV 15 mls/hr .Q48H MARINO Administration PFSH Medical History Neuropathy Wears glasses Arthritis Fatty liver Back pain Spinal stenosis in cervical region History of diverticulitis Gastric reflux Chronic cough Shortness of breath on exertion History of pain when walking History of edema History of echocardiogram History of irregular heartbeat Post-menopausal Injury of head and neck CPAP (continuous positive airway pressure) dependence High cholesterol History of stress test Acute cholecystitis Hemorrhoids Depression Nipple discharge Duct ectasia of breast Bilateral breast cysts Asthma MTHFR (methylene THF reductase) deficiency and homocystinuria HTN (hypertension) Small fiber neuropathy Home Medications ?Medication ?Instructions ?Recorded ?Last Taken ?Type aspirin 81 mg tablet,delayed 81 mg PO DAILY@0800 [facility] 01/27/16 08/19/24 History release cholecalciferol (vitamin D3) 25 1,000 unit PO DAILY supplement 01/27/16 04/03/24 History mcg (1,000 unit) tablet losartan 100 1 tab PO DAILY BP 01/27/16 08/25/24 History mg-hydrochlorothiazide 12.5 mg tablet montelukast 10 mg tablet 10 mg PO QHS asthma 01/27/16 04/03/24 History amitriptyline 25 mg tablet 25 mg PO QHS nerve pain 05/15/20 04/03/24 History acetaminophen 325 mg tablet 650 mg (2 x 325 mg) PO Q4H PRN PRN 06/02/21 Unknown Rx (Tylenol) P/F #0 tabs alpha lipoic acid 600 mg capsule 600 mg PO DAILY 03/08/23 04/03/24 History ascorbic acid (vitamin C) 500 mg 500 mg PO BIDCM supplement 03/08/23 04/03/24 History tablet cinnamon bark 500 mg capsule 1,000 mg PO DAILY 03/08/23 Unknown History levalbuterol tartrate 45 2 puff inhalation Q4-6H PRN 03/08/23 04/03/24 History mcg/actuation aerosol inhaler shortness of breath or wheezing (Xopenex HFA) mecobalamin (vitamin B12) 1,000 1,000 mcg PO DAILY 03/08/23 04/03/24 History mcg chewable tablet (B12 Active) milk thistle 175 mg tablet 175 mg PO BID 03/08/23 04/03/24 History ciclesonide 80 mcg/actuation 2 puff inhalation BID 08/22/24 Unknown History aerosol inhaler (Alvesco) fexofenadine 180 mg tablet 180 mg PO DAILY 08/22/24 Unknown History (Cassandra Allergy) pantoprazole 40 mg tablet,delayed 40 mg PO QHS 08/22/24 Unknown History release tiotropium 2.5 mcg-olodaterol 2.5 2 puff inhalation DAILY 08/22/24 08/26/24 History mcg/actuation mist for inhalation (Stiolto Respimat) Allergy/AdvReac Type Severity Reaction Status Date / Time Seasonal Allergies: Uncoded Allergy Mild Other Verified 08/26/24 07:38 Sulfa (Sulfonamide Allergy Hives Verified 08/26/24 07:38 Antibiotics) JELANI Inhibitors AdvReac COUGH Verified 08/26/24 07:38 Family History Father Hypertension Mother Hypertension Aunt Breast cancer Aunt Breast cancer Surgical History Hx of cystoscopy Hx of colonoscopy Hx laparoscopic cholecystectomy History of hysterectomy History of fusion of cervical spine Social History Smoking Status: Never smoker Review of Systems (Anesthesia) ROS Narrative System reviewed and no additional complaints, except as documented. Physical Exam Resp clear to auscultation bilaterally
--- NOTE | 2024-08-26 08:29 | H&P.OPEN ---
[facility] - General General Date of Service: 08/26/24 HPI Narrative PHU EDWARDS, is a 59 F who presents for screening colonoscopy. Patient last colonoscopy was in [address] Marino no polyps were seen. Patient is on aspirin. Patient denies any chronic abdominal pain/nausea/vomiting/reflux. Patient does have a cough at night and has been on omeprazole for about a year states it does help patient has not taken it for the last week. Patient denies any family history of colon cancer. [facility] Medical History Neuropathy Wears glasses Arthritis Fatty liver Back pain Spinal stenosis in cervical region History of diverticulitis Gastric reflux Chronic cough Shortness of breath on exertion History of pain when walking History of edema History of echocardiogram History of irregular heartbeat Post-menopausal Injury of head and neck CPAP (continuous positive airway pressure) dependence High cholesterol History of stress test Acute cholecystitis Hemorrhoids Depression Nipple discharge Duct ectasia of breast Bilateral breast cysts Asthma MTHFR (methylene THF reductase) deficiency and homocystinuria HTN (hypertension) Small fiber neuropathy Home Medications ?Medication ?Instructions ?Recorded ?Last Taken ?Type aspirin 81 mg tablet,delayed 81 mg PO DAILY@0800 [facility] 01/27/16 08/19/24 History release cholecalciferol (vitamin D3) 25 1,000 unit PO DAILY supplement 01/27/16 04/03/24 History mcg (1,000 unit) tablet losartan 100 1 tab PO DAILY BP 01/27/16 08/25/24 History mg-hydrochlorothiazide 12.5 mg tablet montelukast 10 mg tablet 10 mg PO QHS asthma 01/27/16 04/03/24 History amitriptyline 25 mg tablet 25 mg PO QHS nerve pain 05/15/20 04/03/24 History acetaminophen 325 mg tablet 650 mg (2 x 325 mg) PO Q4H PRN PRN 06/02/21 Unknown Rx (Tylenol) P/F #0 tabs alpha lipoic acid 600 mg capsule 600 mg PO DAILY 03/08/23 04/03/24 History ascorbic acid (vitamin C) 500 mg 500 mg PO BIDCM supplement 03/08/23 04/03/24 History tablet cinnamon bark 500 mg capsule 1,000 mg PO DAILY 03/08/23 Unknown History levalbuterol tartrate 45 2 puff inhalation Q4-6H PRN 03/08/23 04/03/24 History mcg/actuation aerosol inhaler shortness of breath or wheezing (Xopenex HFA) mecobalamin (vitamin B12) 1,000 1,000 mcg PO DAILY 03/08/23 04/03/24 History mcg chewable tablet (B12 Active) milk thistle 175 mg tablet 175 mg PO BID 03/08/23 04/03/24 History ciclesonide 80 mcg/actuation 2 puff inhalation BID 08/22/24 Unknown History aerosol inhaler (Alvesco) fexofenadine 180 mg tablet 180 mg PO DAILY 08/22/24 Unknown History (Cassandra Allergy) pantoprazole 40 mg tablet,delayed 40 mg PO QHS 08/22/24 Unknown History release tiotropium 2.5 mcg-olodaterol 2.5 2 puff inhalation DAILY 08/22/24 08/26/24 History mcg/actuation mist for inhalation (Stiolto Respimat) Allergy/AdvReac Type Severity Reaction Status Date / Time Seasonal Allergies: Uncoded Allergy Mild Other Verified 08/26/24 07:38 Sulfa (Sulfonamide Allergy Hives Verified 08/26/24 07:38 Antibiotics) JELANI Inhibitors AdvReac COUGH Verified 08/26/24 07:38 Family History Father Hypertension Mother Hypertension Aunt Breast cancer Aunt Breast cancer Surgical History Hx of cystoscopy Hx of colonoscopy Hx laparoscopic cholecystectomy History of hysterectomy History of fusion of cervical spine Social History Smoking Status: Never smoker Past Medical/Surgical History Planned Operation Planned Operative Procedure(s): CSCOPE OA S.O.S: No Previous Hospitalizations/Surgeries HX Hospitalizations: No HX of Surgeries: HYDROABLATION 2008 FUSION C5 C6 C7 2011 SPINAL INJECTIONS 12/12,01/12 COLONOSCOPY 2014 Any Problems With Anesthesia: No You/Your Family Experience Fever (Hyperthermia) With Anes: No Cholinesterase deficiency: No Cardiovascular Hx Chest Pain within Last 2 months: No Hx of Irregular Heartbeat and/or Afib: Yes (OCC PVC'S) Hx Heart Attack: No Hx Congestive Heart Failure: No Hx Rheumatic Fever: No Hx Hypertension: Yes (CONTROLLED WITH MED) Hx Internal Defibrillator: No Hx Pacemaker: No Hx Cardiac Catheterization: No Hx Cardiac Surgery/Stents/Etc.: No Hx Stress Test: Yes (2013 AND ECHO 2013) Hx Pain in Legs when Walking/Leg Cramps: Yes (CRAMPING FEET/CONSTANT PAIN IN FEET) Respiratory Chronic Cough: No HX of Shortness of Breath: Yes (WITH EXERTION/CLIMBING STAIRS) Hoarseness: No Hx Chronic Obstructive Pulmonary Disease (COPD): No Hx Asthma: Yes (PRN INHALER) Hx Emphysema: No Hx Sleep Apnea: Yes CPAP: Yes BIPAP: No Hx Respiratory Tract Infection/Cold (presently): No Result (for STOP score): Positive Hx Smoking: No Smoking Status: Never smoker Gastrointestinal Controlled With Meds: No Hx Gastrointestinal Disorders: Yes (DIVERTICULIA) Hx Gastrointestinal Bleed: No Hx Ulcer: No Hx Hiatal Hernia: No Difficulty Chewing/Swallowing: No Special diet followed at home: Yes (NO FOLIC ACID) HX Unplanned Weight Gain of 20#: Yes Neurological Hx Seizures: No HX Syncope/Blackout Spells/Unconsciousness: Yes (LIGHTHEADED AT TIMES FOR LAST 2 YRS) Hx Transient Ischemic Attacks (TIA): No Hx Multiple Sclerosis: No Hx Parkinson's Disease: No Hx Head/Neck Injury: Yes (CERVICAL FUSION/HX OF SEVERE WHIPLASH) Hx Headaches: No Hx Back Injury/Pain: Yes (LOWER BACK PAIN/DDD/ARTHRITIS) Recent Onset of Speech Difficulty: No Restless Legs: Yes (OCC) Does patient have nerve stimulator: No Blood Disorder Hx Leukemia: No Bleeding Tendencies: No Hx Deep Vein Thrombosis: No Hx High Cholesterol: Yes (NO MEDS) Blood Transmitted Disease: No Hx Hepatitis: No Hx Cirrhosis: No (FATTY LIVER) Hx Anemia: No Hx Blood Disorders: Yes (MTHFR) Reproduction : No Is Patient Lactating: No Hx Hysterectomy: No Hx Tubal Ligation: No Are You Post Menopause: Yes Genitourinary Hx Renal Disease: No Musculoskeletal Hx Arthritis: Yes Hx Rheumatoid Arthritis: No Hx Gout: No Recent Onset of an Orthopedic Problem: No Endocrine Hx Diabetes: No Thyroid Disease: No Hx Steroid Therapy: Yes (BACK INJECTION 12/2015) Psycho/Social Hx Substance Use: No Hx Alcohol Use: No Hx Anxiety: No Hx Depression: No Mental Illness: No Hx Dementia: No Miscellaneous Hx Cancer: No Recent Exposure to Contagious Disease: No Hx of C-Diff: No Any Loose Teeth: No Allergies Seasonal Allergies: Uncoded Allergy (Mild, Verified 08/26/24 07:38) Other asthma flares up Dust,Pollen Sulfa (Sulfonamide Antibiotics) Allergy (Verified 08/26/24 07:38) Hives JELANI Inhibitors Adverse Reaction (Verified 08/26/24 07:38) COUGH Discharge Is Pt Admitted From a [facility], or a [facility]: No After D/C, Where Do you Plan to Go: Return Home Vital Signs Vital Signs Vital Signs: 08/26/24 07:40 08/26/24 07:40 08/26/24 08:29 Temperature 98.5 F 98.5 F Temperature Source Temporal Pulse Rate 87 87 Respiratory Rate 14 14 Respiratory Pattern Normal Blood Pressure 129/69 H 129/69 H Blood Pressure Mean 89 Blood Pressure Source Monitor Blood Pressure Position Semi-Fowlers Blood Pressure Location Right Arm Pulse Ox 95 95 Oxygen Delivery Method Room Air Room Air Weight Weight: 262 lb 5.601 oz Body Mass Index (BMI) 41.1 Physical Exam Const alert, oriented x3 and no apparent distress HEENT normocephalic and head/scalp atraumatic Resp normal respiratory effort Cardio regular rate GI soft to palpation and non-tender; Negative for non-distended Palpation: Negative for guarding Extremity no clubbing, cyanosis or edema Skin no rashes or lesions noted Neuro CN's II-XII intact bilaterally Psych mental status grossly normal Assessment & Plan Assessment/Plan (1) Screening for colon cancer: Surgery Risks - Colonoscopy I discussed with the patient the risks of the procedure: Yes Risks Include but are not Limited To: Risks include but are not limited to: Bleeding, perforation requiring further surgery, inability to complete colonoscopy requiring barium enema.
--- NOTE | 2024-08-26 08:30 | COLBX_PTH ---
PATIENT: PHU EDWARDS LOC: EN U#:[id number] AGE/SX: 59/F ROOM: RE08/26/[address]: Dr. Valeri Smith MD : 1965 BED: DIS: 08/26/2024 SPEC #: [id number] RECD: 08/26/24 11:16 STATUS: DRISS REIvan #: [id number] JOEL: 08/26/24 08:[address]: Valeri Smith DEPT: SURGICAL PATHOLOGY RECD BY: Sunny Singh ENTERED: 08/26/24 13:59 SP TYPE: COLON BX EARLENE DR: Dr. Lester Corey MD Tissues: A - Descending colon B - Ascending colon C - Sigmoid colon biopsy Procedures: Surgery Specimen Level IV HEADER OPERATION: Colonoscopy with biopsy PRE-OP DIAGNOSIS: Screening for colon cancer TISSUE SUBMITTED: A- Descending polyp biopsy, B- Ascending polyp, C- Sigmoid polyp MICROSCOPIC DIAGNOSIS A. Descending colon, polyp, biopsy: - Tubular adenoma. B. Ascending colon, polyp, biopsy: - Tubular adenoma. C. Sigmoid colon, polyp, biopsy: - Hyperplastic polyp. MICROSCOPIC DESCRIPTION Slides are reviewed. GROSS DESCRIPTION A. Received in fixative is one container labeled with the patient's name and designated Descending polyp biopsy. The specimen consists of one irregular fragment of light [place]mer[place] soft tissue that measures 0.5 cm. The specimen is totally submitted in one cassette. B. Received in fixative is one container labeled with the patient's name and designated Ascending polyp. The specimen consists of multiple irregular fragments of light salmer[place] soft tissue that in aggregate measure 0.1 to 0.4 cm. The specimen is totally submitted in one cassette. C. Received in fixative is one container labeled with the patient's name and designated Sigmoid polyp. The specimen consists of multiple irregular fragments of light salmeron soft tissue that in aggregate measure <0.1 to 0.4 cm. The specimen is totally submitted in one cassette. SABINO/ 08/26/2024 CPT:76962z4
--- NOTE | 2024-08-26 09:26 | OP.CCLET_ITS ---
08/26/2024 Ricco Corey [address] [place] [address] Re : Colonoscopy procedure for Esperanza Srinivasan Dear Dr. Corey This procedure was performed on Monday, August 26, 2024. My impressions and recommendations are as follows: Impressions : - Diverticulosis in the sigmoid colon. - Two less than 5 mm polyps in the sigmoid colon and in the ascending colon, removed with a hot snare. Resected and retrieved. - One less than 5 mm polyp in the descending colon, removed with a cold biopsy forceps. Resected and retrieved. - The examination was otherwise normal on direct and retroflexion views. - The examined portion of the ileum was normal. Recommendations : - Discharge patient to home. - Resume previous diet. - Continue present medications. - Await pathology results. - Repeat colonoscopy in 5 years for surveillance based on pathology results. My findings are described in the full procedure note, which is enclosed. If I can be of further assistance, please feel free to contact me at Doctor phone number(s): , Work: . Sincerely, MD Valeri Corral MD 08/26/2024 9:25:44 AM This report has been signed electronically.
--- NOTE | 2024-08-26 09:26 | OP.COLON_ITS ---
Patient Name: Esperanza Srinivasan Procedure Date: 08/26/2024 8:42 AM Date of : 1965 Age: 59 Procedure: Colonoscopy Indications: Screening for colorectal malignant neoplasm Providers: Valeri Smith MD Medicines: Monitored Anesthesia Care Patient Profile: This is a 59 year old female. Last Colonoscopy: 2014. Complications: No immediate complications. Procedure: Pre-Anesthesia Assessment: - Prior to the procedure, a History and Physical was performed, and patient medications and allergies were reviewed. The patient's tolerance of previous anesthesia was also reviewed. The risks and benefits of the procedure and the sedation options and risks were discussed with the patient. All questions were answered, and informed consent was obtained. Prior Anticoagulants: The patient has taken no anticoagulant or antiplatelet agents except for aspirin. ASA Grade Assessment: Per anesthesia. After reviewing the risks and benefits, the patient was deemed in satisfactory condition to undergo the procedure. After I obtained informed consent, the scope was passed under direct vision. Throughout the procedure, the patient's blood pressure, pulse, and oxygen saturations were monitored continuously. The Colonoscope was introduced through the anus and advanced to the terminal ileum. The colonoscopy was performed without difficulty. The patient tolerated the procedure well. The quality of the bowel preparation was good. Scope In: 8:54:41 AM Scope Withdrawal Time 0 hours 21 minutes 33 seconds Scope Out: 9:24:25 AM Total Procedure Duration Time 0 hours 29 minutes 44 seconds Findings: The perianal and digital rectal examinations were normal. Multiple small-mouthed diverticula were found in the sigmoid colon. Two semi-pedunculated polyps were found in the sigmoid colon and ascending colon. The polyps were less than 5 mm in size. These polyps were removed with a hot snare. Resection and retrieval were complete. A less than 5 mm polyp was found in the descending colon. The polyp was sessile. The polyp was removed with a cold biopsy forceps. Resection and retrieval were complete. The exam was otherwise without abnormality on direct and retroflexion views. The terminal ileum appeared normal. Impression: - Diverticulosis in the sigmoid colon. - Two less than 5 mm polyps in the sigmoid colon and in the ascending colon, removed with a hot snare. Resected and retrieved. - One less than 5 mm polyp in the descending colon, removed with a cold biopsy forceps. Resected and retrieved. - The examination was otherwise normal on direct and retroflexion views. - The examined portion of the ileum was normal. Recommendation: - Discharge patient to home. - Resume previous diet. - Continue present medications. - Await pathology results. - Repeat colonoscopy in 5 years for surveillance based on pathology results. Procedure Code(s): --- Professional --- 72604, PT, Colonoscopy, flexible; with removal of tumor(s), polyp(s), or other lesion(s) by snare technique 61025, 59, Colonoscopy, flexible; with biopsy, single or multiple Diagnosis Code(s): --- Professional --- Z12.11, Encounter for screening for malignant neoplasm of colon D12.5, Benign neoplasm of sigmoid colon D12.2, Benign neoplasm of ascending colon D12.4, Benign neoplasm of descending colon K57.30, Diverticulosis of large intestine without perforation or abscess without bleeding CPT copyright 2021 [employer]. All rights reserved. The codes documented in this report are preliminary and upon wound care technician review may be revised to meet current compliance requirements. MD Valeri Corral MD 08/26/2024 9:25:44 AM This report has been signed electronically. Number of Addenda: 0 Note Initiated On: 08/26/2024 8:42 AM
--- NOTE | 2024-08-26 09:30 | PCM.POST.ANE ---
Anesthesia: Postop Eval I Current Vital Signs Temperature: 98.4 F Pulse Rate: 80 Blood Pressure: 102/66 Respiratory Rate: 16 Pulse Ox: 98 Oxygen Delivery Method: Room Air Assessment Airway patent: Yes Spontaneous unlabored respirations: Yes Mental status: Awake and Calm nausea: No Vomiting: No Anesthesia Complication: No Fluid Hydration Crystalloid volume administer (ml): 200 Total IV fluid infused: 200 Progress Note Anesthesia document: Postop Eval 1 completed: Yes
--- NOTE | 2024-08-26 10:52 | POSTOPAN2_ITS ---
Anesthesia Postop Eval I Sum Postop Eval Completion status Anesthesia document: Postop Eval 1 completed: Yes Anesthesia Postop Eval I Summary Anesthesia Postop Eval I Summary: Anesthesia Postop Eval I: Assessment Summary Airway patent Yes 08/26/24 09:31 [email or web address] Spontaneous unlabored Yes 08/26/24 09:31 BINDER [email or web address] respirations Mental status Awake,Calm 08/26/24 09:31 [email or web address] [email or web address] nausea No 08/26/24 09:31 BINDER [email or web address] Vomiting No 08/26/24 09:31 [email or web address] Anesthesia Postop Eval I: Fluid Summary Crystalloid volume administer 200 08/26/24 09:31 [email or web address] (ml) Colloids volume administered ( ml) Blood Product volume administered (ml) Total IV fluid infused 200 08/26/24 09:31 [email or web address] Anesthesia Postop Eval I: Summary Notes Anesthesia Complication No 08/26/24 09:31 [email or web address] Anesthesia Complication Comment: Post-operative progress note Anesthesia: Postop Eval II Evaluation Mental status: Awake Pain Level: 1 nausea: No Vomiting: No
--- NOTE | 2024-08-26 10:52 | PCM.POSTANE2 ---
Anesthesia Postop Eval I Sum Postop Eval Completion status Anesthesia document: Postop Eval 1 completed: Yes Anesthesia Postop Eval I Summary Anesthesia Postop Eval I Summary: Anesthesia Postop Eval I: Assessment Summary Airway patent Yes 08/26/24 09:31 COLON AND RECTAL [email or web address] Spontaneous unlabored Yes 08/26/24 09:31 COLON AND RECTAL [email or web address] respirations Mental status Awake,Calm 08/26/24 09:31 COLON AND RECTAL [email or web address] nausea No 08/26/24 09:31 COLON AND RECTAL [email or web address] Vomiting No 08/26/24 09:31 COLON AND RECTAL [email or web address] Anesthesia Postop Eval I: Fluid Summary Crystalloid volume administer 200 08/26/24 09:31 COLON AND RECTAL [email or web address] (ml) Colloids volume administered ( ml) Blood Product volume administered (ml) Total IV fluid infused 200 08/26/24 09:31 COLON AND RECTAL [email or web address] Anesthesia Postop Eval I: Summary Notes Anesthesia Complication No 08/26/24 09:31 COLON AND RECTAL [email or web address] Anesthesia Complication Comment: Post-operative progress note Anesthesia: Postop Eval II Evaluation Mental status: Awake Pain Level: 1 nausea: No Vomiting: No
== END 2024-08-26 10:06 | disposition home or self-care (01) ==
LOC: EN 07:21 → AC 07:21
PROVIDERS: PCP Family Medicine; Referring Provider Family Medicine; Visit Provider Surgery
PROC: 0DJD8ZZ Inspection of Lower Intestinal Tract, Via Natural or Artificial Opening Endoscopic (ICD-10-PCS; CPT 45378; principal; 2024-08-26 08:25)
DX: Z12.11 Encounter for screening for malignant neoplasm of colon (principal); D12.4 Benign neoplasm of descending colon; D12.2 Benign neoplasm of ascending colon; K63.5 Polyp of colon; K57.30 Diverticulosis of large intestine without perforation or abscess without bleeding; I10 Essential (primary) hypertension; K21.9 Gastro-esophageal reflux disease without esophagitis; K76.0 Fatty (change of) liver, not elsewhere classified; G62.9 Polyneuropathy, unspecified; J45.909 Unspecified asthma, uncomplicated; Z90.49 Acquired absence of other specified parts of digestive tract; Z87.19 Personal history of other diseases of the digestive system; Z79.51 Long term (current) use of inhaled steroids; Z79.82 Long term (current) use of aspirin; Z79.899 Other long term (current) drug therapy
CPT/HCPCS: 45385; 45380; 88305; J2405

== ENCOUNTER → 2024-12-28 | Outpatient (CLI) | payer OTHER, SELFPAY ==
[2024-12-28 12:04] LABS: Hematocrit 40.8 % (37-47); Hemoglobin 13.8 g/dL (12.0-15.0); Immature Granulocytes Count 0.050 X10^3/uL (0.0-0.0); Mean Corp Hgb Conc 33.8 g/dL (32-36); Mean Corpuscular Volume 92.1 fL (81-99); Mean Platelet Vol. 9.1 fl (6.2-12.0); NRBC Flagged by Analyzer 0 % (0-5); Platelet Count 169 K/mm3 (150-450); RBC Distribution Width CV 12.9 % (11.6-14.6); RBC Distribution Width SD 43.4 fl (35.1-43.9); Red Blood Count 4.43 M/mm3 (4.2-5.4); White Blood Count 5.2 K/mm3 (4.4-11.0)
[2024-12-28 12:33] LABS: Vitamin B12 551 pg/mL (180-914); Vitamin D,25 Hydroxy 62.9 ng/mL (30-100)
== END | disposition home or self-care (01) ==
LOC: LAB 11:27
PROVIDERS: PCP Family Medicine; Referring Provider Internal Medicine Pulmonary Disease; Visit Provider Internal Medicine Pulmonary Disease
DX: J45.909 Unspecified asthma, uncomplicated (principal); R49.0 Dysphonia
CPT/HCPCS: 36415; 82306; 82607; 84443; 85025